=== PATIENT | male | born 1970 | race Caucasian/White ===

== ENCOUNTER 2023-01-11 16:27 | Inpatient (IN) | payer MEDICARE ==
[2023-01-11] MEDS ORDERED: METHYLPREDNISOLONE 125 MG INJ ONE (16:45)
[2023-01-11] MEDS ORDERED: IBUPROFEN 200 MG TAB PO ONE (16:46)
[2023-01-11] MEDS ORDERED: HYDROCODONE/APAP 7.5/325 MG TAB ONE (16:46)
[2023-01-11 17:08] LABS: Absolute Lymphocytes (CBC) 1.9 K/uL (0.7-4.9); Lymphocytes % 10.1 % (15.3-44.8); MCV 91.4 fL (80-100); MPV 8.8 fL (7.6-11.3); RBC Red Blood Cell Count 4.71 M/uL (4.33-5.43)
[2023-01-11 17:18] LABS: Potassium 4.1 mEq/L (3.5-5.1)
[2023-01-11 17:21] LABS: SARS-CoV-2 Antigen Rapid Res Negative (Negative)
--- NOTE | 2023-01-11 17:39 | RAD REPORT ---
EXAM DESCRIPTION: Marzena Single View01/11/2023 5:30 pm CLINICAL HISTORY: cough COMPARISON: October 2022 FINDINGS: The lungs appear clear of acute infiltrate. The heart is normal size IMPRESSION: No acute abnormalities displayed
[2023-01-11 17:59] LABS: Albumin 3.6 g/dL (3.4-5.0); Bilirubin Direct 0.2 mg/dL (0-0.2); Bilirubin Indirect, Calculated 0.4 mg/dL (0.2-0.8); Bilirubin Total 0.6 mg/dL (0.2-1.0); Protein, Total 7.7 g/dL (6.4-8.2)
[2023-01-11] MEDS ORDERED: NA CHLORIDE 0.9% 3,000 ML ONE (17:59)
[2023-01-11] MEDS ORDERED: CEFTRIAXONE 1000 MG/VIAL ONE (17:59)
[2023-01-11 18:46] LABS: Protime INR 1.05
--- NOTE | 2023-01-11 19:04 | ER ---
Nurse's Notes [facility] Name: Colby Beltrán Age: 52 yrs Sex: Male : 1970 Arrival Date: 01/11/2023 Time: 16:27 Bed 15 Private MD: Diagnosis: Elevated white blood cell count;Hypoxia;Fever, unspecified;Other pneumonia, unspecified organism;Severe sepsis without septic shock Presentation: 01/11 16:28 Chief complaint: EMS states: 1 WK COUGH AND SOB. Coronavirus screen: cough unrelated to bp allergies, fever, Client presents with at least one sign or symptom that may indicate coronavirus-19. Ebola Screen: No symptoms or risks identified at this time. Initial Sepsis Screen: Does the patient meet any 2 criteria? HR > 90 bpm. No. Patient's initial sepsis screen is negative. Does the patient have a suspected source of infection? Yes: Productive cough/pneumonia. Risk Assessment: Do you want to hurt yourself or someone else? Patient reports no desire to harm self or others. Onset of symptoms is unknown. Care prior to arrival: Glucose check: 115. 16:28 Method Of Arrival: EMS: [facility] bp 16:28 Acuity: DAMEON 3 bp Triage Assessment: 16:30 General: Appears ill, Behavior is appropriate for age. Pain: Denies pain. EENT: No bp deficits noted. Neuro: No deficits noted. Cardiovascular: Rhythm is sinus tachycardia. Respiratory: Reports shortness of breath cough that is. GI: No signs and/or symptoms were reported involving the gastrointestinal system. : No signs and/or symptoms were reported regarding the genitourinary system. Derm: No deficits noted. Musculoskeletal: No deficits noted. Historical: - Allergies: 16:30 No Known Allergies; bp - PMHx: 16:30 COPD; diabetes mellitus; bp - PSHx: 16:30 B knee scopes; back SX x 5; R shoulder SX; bp - Immunization history:: Adult Immunizations up to date. - Social history:: Smoking status: unknown. Screenin:31 [facility] ED Fall Risk Assessment (Adult) History of falling in the last 3 months, bp including since admission No falls in past 3 months (0 pts). Abuse screen: Denies threats or abuse. Denies injuries from another. Nutritional screening: No deficits noted. Tuberculosis screening: No symptoms or risk factors identified. Assessment: 16:31 General: SEE TRIAGE NOTE. bp 18:05 Reassessment: Patient appears in no apparent distress at this time. Patient is alert, bp oriented x 3, equal unlabored respirations, skin warm/dry/pink. Patient states symptoms have improved. 19:00 General: Appears in no apparent distress. comfortable, well groomed, well developed, pf1 Behavior is calm, cooperative, appropriate for age, quiet. 19:00 Pain: Denies pain. Neuro: Level of Consciousness is awake, alert, obeys commands, pf1 Oriented to person, place, time, situation, Reports dizziness, intermittent dizziness. Cardiovascular: Capillary refill < 3 seconds Patient's skin is warm and dry. Respiratory: Reports cough that is Airway is patent Respiratory effort is even, unlabored, Respiratory pattern is regular, symmetrical, Breath sounds with wheezes bilaterally. mild. GI: No deficits noted. Abdomen is round non-distended, Bowel sounds present X 4 quads. : No deficits noted. No signs and/or symptoms were reported regarding the genitourinary system. EENT: No deficits noted. No signs and/or symptoms were reported regarding the EENT system. Derm: No deficits noted. No signs and/or symptoms reported regarding the dermatologic system. 20:00 Reassessment: Patient appears in no apparent distress at this time. Patient and/or pf1 family updated on plan of care and expected duration. Pain level reassessed. Patient is alert, oriented x 3, equal unlabored respirations, skin warm/dry/pink. Patient states feeling better. Patient states symptoms have improved. Vital Signs: 16:28 BP 110 / 68; Pulse 108; Resp 19; Pulse Ox 97% ; bp 16:31 BP 109 / 72; Pulse 95; Resp 20; Temp 102; Pulse Ox 97% ; Weight 107.95 kg; bp 18:04 BP 106 / 70; Pulse 101; Resp 20; Pulse Ox 93% on 2 lpm NC; bp 18:30 BP 101 / 72; Pulse 100; Resp 20; Temp 98.9; Pulse Ox 93% on 2 lpm NC; bp 19:05 Temp 98.9(O); mm9 19:30 BP 116 / 75; Pulse 90; Resp 19; Temp 98.3; Pulse Ox 95% on 2 lpm NC; Pain 0/10; pf1 19:30 Pain Scale: Adult pf1 ED Course: 16:28 Patient arrived in ED. bp 16:29 Gisselle Ware FNP-C is PHCP. kb 16:29 Luisito Morales MD is Attending Physician. kb 16:30 Triage completed. bp 16:30 Arm band placed on. bp 16:31 Patient has correct armband on for positive identification. Bed in low position. Call bp light in reach. Side rails up X2. 16:32 Herbert Rausch, RN is Primary Nurse. bp 16:44 Inserted saline lock: 20 gauge in right antecubital area, using aseptic technique. bp Blood collected. 16:45 Initial lab(s) drawn, by ri, sent to lab. First set of blood cultures drawn Second set mm9 of blood cultures drawn by ri, COVID swab sent to lab. Flu and/or RSV swab sent to lab. 16:52 Adult w/ patient. Pillow given. Client placed on continuous cardiac and pulse oximetry mm9 monitoring. NIBP monitoring applied. equipment monitor phototypesetting on. Pulse ox on. NIBP on. 16:52 Inserted saline lock: 20 gauge in right antecubital area, using aseptic technique. mm9 16:53 Blood Culture Adult (2) Sent. mm9 16:53 Lactate w/ 2H reflex if indic. Sent. mm9 16:53 Basic Metabolic Panel Sent. mm9 16:53 CBC with Diff Sent. mm9 16:53 Flu Sent. mm9 16:53 SARS-COV-2 Antigen Rapid Sent. mm9 17:32 Chest Single View XRAY In Process Unspecified. EDMS 18:31 Protime (+inr) Sent. mm9 18:31 Ptt, Activated Sent. mm9 18:31 Blood Culture Adult (2) Sent. mm9 18:32 EKG done, by ED staff, reviewed by Luisito Morales MD. mm9 19:00 No provider procedures requiring assistance completed. Inserted per dayshift 18 gauge pf1 to LFA. 19:01 CT Chest For PE Angio In Process Unspecified. EDMS 19:04 Jim Morales MD is Hospitalizing Provider. kb 19:24 Primary Nurse role handed off by Herbert Rausch, RN rv1 20:13 Patient admitted, IV remains in place. pf1 Administered Medications: 16:38 CANCELLED (Duplicate Order): Acetaminophen PO 1000 mg PO once kb 16:44 Drug: MethylPrednisoLONE IVP 125 mg Route: IVP; Site: right antecubital; bp 17:25 Follow up: Response: No adverse reaction bp 16:44 Drug: Hydrocodone-Acetaminophen PO (7.5 mg-325 mg) 1 tabs Route: PO; bp 17:25 Follow up: Response: No adverse reaction bp 16:44 Drug: Ibuprofen PO 600 mg Route: PO; bp 17:25 Follow up: Response: No adverse reaction bp 18:05 Drug: Rocephin IV 1 grams Route: IV; Rate: calculated rate; Site: left forearm; bp 19:00 Follow up: Response: No adverse reaction; Marked relief of symptoms; IV Status: pf1 Completed infusion 18:05 Drug: NS 0.9% IV (30 ml/kg) 30 ml/kg Route: IV; Rate: bolus; Site: left forearm; bp 19:00 Follow up: Response: No adverse reaction; Marked relief of symptoms pf1 20:15 Follow up: IV Status: Completed infusion pf1 19:50 Drug: Zithromax IVPB 500 mg Route: IVPB; Infused Over: 1 hrs; Site: left forearm; pf1 20:15 Follow up: Response: No adverse reaction; Marked relief of symptoms pf1 20:25 Follow up: IV Status: Infusion continued upon admission pf1 Medication: 16:31 VIS not applicable for this client. bp Outcome: 19:04 Decision to Hospitalize by Provider. kb 20:25 Admitted to Med/surg accompanied by tech, via wheelchair, room 211, with oxygen, with pf1 chart, Report called to ENRIQUE Tucker 20:25 Condition: stable 20:25 Instructed on the need for admit, Demonstrated understanding of instructions. 20:27 Patient left the ED. pf1 Signatures: Dispatcher [employer] EDMD Gisselle Ware, Herbert Segal RN RN Maria Antonia Watkins mm9 Kala Vivar RN RN pf1 Martha Santos rv1 Corrections: (The following items were deleted from the chart) 17:49 16:31 BP 109 / 72; Pulse 95bpm; Resp 20bpm; Pulse Ox 97%; Temp 102F; bp bp 20:11 20:09 General: Appears pf1 pf1 20:12 19:00 Neuro: No deficits noted. Level of Consciousness is awake, alert, obeys commands, pf1 Oriented to person, place, time, situation, pf1
--- NOTE | 2023-01-11 19:05 | EDPHYS ---
Physician Documentation [facility] Name: Colby Beltrán Age: 52 yrs Sex: Male : 1970 Arrival Date: 01/11/2023 Time: 16:27 Bed 15 Private MD: ED Physician Luisito Morales HPI: 01/11 16:36 This 52 yrs old Male presents to ER via EMS with complaints of Cough. kb 16:36 Patient is a 52-year-old male with a history of COPD and diabetes who presents for kb cough, congestion, fever, chills that started yesterday. States initial cough started 1 week ago with some shortness of breath after inhaling sewer pipe cleaner accidentally. Was seen by PCP and given steroids which she completed on Thursday.. Historical: - Allergies: 16:30 No Known Allergies; bp - PMHx: 16:30 COPD; diabetes mellitus; bp - PSHx: 16:30 B knee scopes; back SX x 5; R shoulder SX; bp - Immunization history:: Adult Immunizations up to date. - Social history:: Smoking status: unknown. ROS: 16:38 Abdomen/GI: Negative for abdominal pain, nausea, vomiting, diarrhea, and constipation. kb 16:38 Constitutional: Positive for chills, fever. 16:38 ENT: Positive for sinus congestion. 16:38 Respiratory: Positive for cough. 16:38 Back: Positive for pain at rest, pain with movement. 16:38 All other systems are negative. Exam: 16:39 Constitutional: This is a well developed, well nourished patient who is awake, alert, kb and in no acute distress. Head/Face: Normocephalic, atraumatic. ENT: Moist Mucous membranes Cardiovascular: Regular rate and rhythm with a normal S1 and S2. No gallops, murmurs, or rubs. No pulse deficits. Abdomen/GI: Soft, non-tender. No distention Skin: Warm, dry with normal turgor. Normal color. MS/ Extremity: Pulses equal, no cyanosis. Neurovascular intact. Full, normal range of motion. Neuro: Awake and alert, GCS 15, oriented to person, place, time, and situation. Moves all extremities. Normal gait. 16:39 Respiratory: the patient does not display signs of respiratory distress, Respirations: normal, Breath sounds: wheezing: expiratory that is mild, is scattered. Vital Signs: 16:28 BP 110 / 68; Pulse 108; Resp 19; Pulse Ox 97% ; bp 16:31 BP 109 / 72; Pulse 95; Resp 20; Temp 102; Pulse Ox 97% ; Weight 107.95 kg; bp 18:04 BP 106 / 70; Pulse 101; Resp 20; Pulse Ox 93% on 2 lpm NC; bp 18:30 BP 101 / 72; Pulse 100; Resp 20; Temp 98.9; Pulse Ox 93% on 2 lpm NC; bp 19:05 Temp 98.9(O); mm9 19:30 BP 116 / 75; Pulse 90; Resp 19; Temp 98.3; Pulse Ox 95% on 2 lpm NC; Pain 0/10; pf1 19:30 Pain Scale: Adult pf1 MDM: 16:29 Patient medically screened. kb 16:39 Differential Diagnosis: Bronchitis Influenza Upper Respiratory Infection Viral Syndrome kb Pneumonia. Data reviewed: vital signs, nurses notes. Historians other than the Patient: EMS: [facility]. 18:57 Consideration of Admission/Observation Patient was admitted/placed on observation. kb Management of patient was discussed with the following: Hospitalist: XIOMY Desai accepts pt for admission under Dr Morales. Counseling: I had a detailed discussion with the patient and/or guardian regarding: the historical points, exam findings, and any diagnostic results supporting the discharge/admit diagnosis, lab results, radiology results, the need for further work-up and treatment in the hospital. 01/11 16:30 Order name: SARS-COV-2 Antigen Rapid; Complete Time: 17:21 kb 01/11 16:30 Order name: Flu; Complete Time: 17:40 kb 01/11 16:30 Order name: CBC with Diff; Complete Time: 17:18 kb 01/11 16:30 Order name: Basic Metabolic Panel; Complete Time: 17:18 kb 01/11 16:33 Order name: Lactate w/ 2H reflex if indic.; Complete Time: 17:35 kb 01/11 16:33 Order name: Blood Culture Adult (2) 01/11 17:30 Order name: Protime (+inr); Complete Time: 18:56 kb 01/11 17:30 Order name: Ptt, Activated; Complete Time: 18:56 kb 01/11 17:30 Order name: LFT's; Complete Time: 18:02 kb 01/11 16:30 Order name: Chest Single View XRAY; Complete Time: 17:40 kb 01/11 18:03 Order name: CT Chest For PE Angio; Complete Time: 19:26 kb 01/11 17:30 Order name: EKG; Complete Time: 17:31 kb 01/11 16:30 Order name: IV Start; Complete Time: 16:41 kb 01/11 17:30 Order name: Cardiac monitoring; Complete Time: 18:31 kb 01/11 17:30 Order name: EKG - Nurse/Tech; Complete Time: 18:31 kb Administered Medications: 16:38 CANCELLED (Duplicate Order): Acetaminophen PO 1000 mg PO once kb 16:44 Drug: MethylPrednisoLONE IVP 125 mg Route: IVP; Site: right antecubital; bp 17:25 Follow up: Response: No adverse reaction bp 16:44 Drug: Hydrocodone-Acetaminophen PO (7.5 mg-325 mg) 1 tabs Route: PO; bp 17:25 Follow up: Response: No adverse reaction bp 16:44 Drug: Ibuprofen PO 600 mg Route: PO; bp 17:25 Follow up: Response: No adverse reaction bp 18:05 Drug: Rocephin IV 1 grams Route: IV; Rate: calculated rate; Site: left forearm; bp 19:00 Follow up: Response: No adverse reaction; Marked relief of symptoms; IV Status: pf1 Completed infusion 18:05 Drug: NS 0.9% IV (30 ml/kg) 30 ml/kg Route: IV; Rate: bolus; Site: left forearm; bp 19:00 Follow up: Response: No adverse reaction; Marked relief of symptoms pf1 20:15 Follow up: IV Status: Completed infusion pf1 19:50 Drug: Zithromax IVPB 500 mg Route: IVPB; Infused Over: 1 hrs; Site: left forearm; pf1 20:15 Follow up: Response: No adverse reaction; Marked relief of symptoms pf1 20:25 Follow up: IV Status: Infusion continued upon admission pf1 Disposition Summary: 01/11/23 19:04 Hospitalization Ordered Hospitalization Status: Observation kb Provider: Jim Morales Location: Telemetry/MedSurg (observation) kb Problem: new kb Symptoms: are unchanged kb Bed/Room Type: Standard kb Condition: Fair(01/11/23 19:04) kb Room Assignment: 211(01/11/23 19:46) cg Diagnosis - Elevated white blood cell count kb - Hypoxia kb - Fever, unspecified kb - Other pneumonia, unspecified organism kb - Severe sepsis without septic shock kb Forms: - Medication Reconciliation Form kb - SBAR form kb Addendum: 01/13/2023 09:00 Co-signature as Attending Physician, Luisito Morales MD I reviewed the patient's care r n provided by the Advanced Practice Provider and agree with the diagnosis and treatment plan. Signatures: Dispatcher [employer] EDOR Gisselle Ware, JET OPERATOR-C JET OPERATOR-Ckb Luisito Morales MD MD rn Garcia, Cindy, RN RN Herbert Rodríguez RN RN Kala Allison, ENRIQUE RN pf1 Corrections: (The following items were deleted from the chart) 01/11 16:38 16:33 Acetaminophen PO 1000 mg PO once ordered. kb kb 19:04 19:04 Stable kb kb 19:46 19:04 kb cg
--- NOTE | 2023-01-11 19:21 | RAD REPORT ---
EXAM DESCRIPTION: CT - Chest For Pe Angio - 01/11/2023 6:59 pm CLINICAL HISTORY: Chest pain COMPARISON: None. TECHNIQUE: Dynamically enhanced axial 3 mm thick images of the chest were obtained during administra tion of 100 mL Isovue 370 IV contrast. Coronal and oblique reconstruction images were generated and r eviewed. Exam utilizes a protocol for optimal evaluation of pulmonary arterial tree. Maximum intensity projections 3D imaging was utilized All CT scans are performed using dose optimization technique as appropriate and may include automated exposure control or mA/KV adjustment according to patient size. FINDINGS: A pulmonary embolus is not seen. A thoracic aortic aneurysm is not noted. A pleural effusion is not seen. A pericardial effusion is not seen. A right lower lobe consolidation IMPRESSION: Negative for a pulmonary embolism. Right lower lobe consolidation probably pneumonia. This should be followed until it has cleared to he lp exclude a post obstructive process/underlying mass
[2023-01-11] MEDS ORDERED: AZITHROMYCIN 500 MG INJ IVPB ONE (19:44)
[2023-01-11] MEDS ORDERED: NA CHLORIDE 0.9% 250 ML ONE (19:47)
[2023-01-11 20:48] VITALS: BMI 32.3
[2023-01-11] MEDS ORDERED: ALBUTEROL 2.5 MG/3 ML NEB SOL NEB PRN (20:50)
[2023-01-11] MEDS ORDERED: ONDANSETRON 4 MG/2 ML VIAL IV PRN (20:50)
[2023-01-11] MEDS ORDERED: ACETAMINOPHEN 500 MG TAB PO PRN (20:50)
[2023-01-11] MEDS ORDERED: INSULIN -REGULAR HUMAN 50 UNIT/0.5 ML ML SQ SCH (21:00)
[2023-01-11] MEDS: BENZONATATE 100 MG CAP PO PRN (21:06)
[2023-01-11] MEDS: NA CHLORIDE 0.9% 1,000 ML IV SCH (21:07)
--- NOTE | 2023-01-12 01:00 | P.HP ---
Certification for Inpatient Patient admitted to: Inpatient With expected LOS: >2 Midnights Patient will require the following post-hospital care: None Practitioner: I am a practitioner with admitting privileges, knowledge of patient current condition, hospital course, and medical plan of care. Services: Services provided to patient in accordance with Admission requirements found in Title 42 Section 412.3 of the Code of Federal Regulations Patient History Date of Service: 01/11/23 Reason for admission: Severe sepsis, pneumonia History of Present Illness: 52-year-old male with history of COPD, diabetes mellitus type 2, hyperlipidemia presents the emergency department with chief complaint of fever, cough. He reports that a week ago Thursday he was cleaning his car using [employer] cleaning and when he sprayed it got caught in the wind and he inhaled some of it, he reports ever since then he been feeling short of breath and recently started having fevers. He was evaluated in the emergency department his labs are significant for leukocytosis white blood cell count 18.4 creatinine 1.33 GFR 64 lactic acid 3.2 chest x-ray negative for acute finding CTA of the chest demonstrated right lower lobe consolidation probably pneumonia. This should be followed until it has cleared up to help exclude a postobstructive process/underlying mass. He started Rocephin/Zithromax to treat here for severe sepsis at this time. Will be admitted for further evaluation and management. Allergies No Known Allergies Allergy (Unverified 01/11/23 20:49) Home Medications: Acetaminophen [Tylenol Extra Strength] 1,000 mg PO BID 01/11/23 Ibuprofen [Motrin*] 800 mg PO BID 01/11/23 Metformin ER [Glucophage ER*] 500 mg PO BID 01/11/23 glipiZIDE [Glipizide] 10 mg PO DAILY 01/11/23 - Past Medical/Surgical History Has patient received pneumonia vaccine in the past: Yes Diabetic: Yes -: DM -: COPD -: Back surg (5x) -: Osito knee scopes -: R Shoulder Psychosocial/ Personal History: Patient lives at home with family is retired - Social History Smoking Status: Current every day smoker Alcohol use: No CD- Drugs: No Caffeine use: Yes Place of Residence: Home Review of Systems 10-point ROS is otherwise unremarkable General: Fever, Chills Respiratory: Cough, Shortness of Breath, Wheezing Physical Examination - Vital Signs Temperature: 98.3 F Blood Pressure: 116/75 Pulse: 90 Respirations: 19 - Physical Exam General: Alert, In no apparent distress, Oriented x3 HEENT: Atraumatic, PERRLA, Mucous membr. moist/pink, EOMI, Sclerae nonicteric Neck: Supple, 2+ carotid pulse no bruit, No LAD, Without JVD or thyroid abnormality Respiratory: Clear to auscultation bilaterally, Normal air movement Cardiovascular: Regular rate/rhythm, Normal S1 S2 Capillary refill: <2 Seconds Gastrointestinal: Normal bowel sounds, No tenderness Musculoskeletal: No tenderness Integumentary: No rashes Neurological: Normal gait, Normal speech, Normal strength at 5/5 x4 extr, Normal tone, Normal affect - Studies Laboratory Data (last 24 hrs) 01/11/23 18:28: PT 11.5, INR 1.05, APTT 34.4 01/11/23 16:30: Total Bilirubin 0.6, AST 14 L, ALT 29, Alkaline Phosphatase 88 01/11/23 16:30: Sodium 136, Potassium 4.1, BUN 18, Creatinine 1.33 H, Glucose 103 01/11/23 16:30: WBC 18.40 H, Hgb 14.2, Hct 43.0, Plt Count 289 Microbiology Data (last 24 hrs): 01/11/23 16:30 Nasopharnyx Influenza Type A Antigen Screen - Final 01/11/23 16:30 Nasopharnyx Influenza Type B Antigen Screen - Final Assessment and Plan - Plan Assessment: Severe sepsis secondary to right lower lobe pneumonia Acute hypoxic respiratory failure secondary to right lower lobe pneumonia COPD Diabetes mellitus type 2 Plan: Severe sepsis secondary to right lower lobe pneumonia Blood cultures obtained in the emergency department, continue IV IV Rocephin/Zithromax. Daily room air saturations currently he is requiring oxygen per nasal cannula to maintain saturations greater than 90%. Acute hypoxic respiratory failure secondary to right lower lobe pneumonia Continue as above, wean off of nasal cannula oxygen. COPD as needed nebulizer treatments. Diabetes mellitus type 2 ACHS Accu-Chek, sliding scale insulin. DVT PPX: Lovenox Code status: full Discharge Plan: Home Plan to discharge in: 48 Hours - Advance Directives Does patient have a Living Will: No Does patient have a Durable POA for Healthcare: No - Code Status/Comfort Care Code Status Assessed: Yes (Full code) Critical Care: No Time Spent Managing Pts Care (In Minutes): 55
[2023-01-12 03:38] LABS: Absolute Lymphocytes (CBC) 0.8 K/uL (0.7-4.9); Hematocrit 40.4 % (39.6-49.0); Lymphocytes % 4.7 % (15.3-44.8); MCV 92.6 fL (80-100); MPV 9.5 fL (7.6-11.3); RBC Red Blood Cell Count 4.37 M/uL (4.33-5.43)
[2023-01-12 03:54] LABS: Potassium 4.9 mEq/L (3.5-5.1)
[2023-01-12] MEDS ORDERED: GLUCAGON 1 MG/VIAL IM PRN (04:01)
[2023-01-12] MEDS ORDERED: D50W 25 GM/50 ML SYRINGE IV PRN (04:01)
[2023-01-12] MEDS ORDERED: INSULIN -REGULAR HUMAN 50 UNIT/0.5 ML ML IV ONE (04:02)
[2023-01-12] MEDS ORDERED: D10W 125 ML IV PRN (04:06)
[2023-01-12 04:49] LABS: Blood Morphology Comment NOT SEEN (NOT SEEN); Platelet Estimate ADEQ
[2023-01-12] MEDS: NA CHLORIDE 0.9% 1,000 ML IV SCH ×2 (06:49→16:28)
[2023-01-12] MEDS: BENZONATATE 100 MG CAP PO PRN (06:49)
--- NOTE | 2023-01-12 06:59 | P.PN ---
Date of Service: 01/12/23 Subjective: feeling a little better today continues to have trouble breathing, slightly improved; +SOB with exertion febrile yesterday (102) afebrile since last night otherwise no new / worsening problems ROS: 10 point ROS as noted above, otherwise negative Physical Exam: GEN: Alert, oriented, NAD HEENT: Normal conjunctiva, sclera anicteric CV: Regular rate and rhythm, no edema Pulm: mildly-labored respirations on 2.5L NC, diminished at bases b/, expiratory wheezes ABD: Soft, nontender, nondistended Neuro: Normal speech, normal affect vitals reviewed Problem List: Severe sepsis secondary to right lower lobe pneumonia Acute hypoxic respiratory failure secondary to right lower lobe pneumonia acute on chronic COPD exacerbation NIDDM2 Severe sepsis secondary to right lower lobe pneumonia Acute hypoxic respiratory failure secondary to right lower lobe pneumonia acute on chronic COPD exacerbation CXR (01/11): No acute abnormalities displayed CTA chest (01/11): Negative for a pulmonary embolism. Right lower lobe consolidation probably pneumonia Blood cultures: pending IV Rocephin/Zithromax (01/11-) Daily room air sats, wean oxygen as tolerated neb treatments, tessalon perles PRN pain meds as needed IVF NIDDM2 ACHS Accu-Chek, sliding scale insulin. VTE: Lovenox Code: Full Dispo: Home ~1-2 days
[2023-01-12] MEDS: ENOXAPARIN 40 MG/0.4 ML SQ SCH (08:28)
[2023-01-12] MEDS: INSULIN -REGULAR HUMAN 50 UNIT/0.5 ML ML SQ SCH ×4 (08:30→20:05)
--- NOTE | 2023-01-12 12:03 | EKG ---
Test Date: 2023-01-11 Test Time: 18:42:15 Supervisor Of Research: FOREST MEASUREMENT RESULTS: Intervals: Rate: 94 CO: 136 QRSD: 90 QT: 370 QTc: 462 [place]: P: 36 CO: 136 QRS: 43 T: 67 INTERPRETIVE STATEMENTS: Normal sinus rhythm Normal ECG Compared to ECG 10/31/2022 17:58:52 No significant changes Electronically Signed On 01-12-23 12:00:29 CDT by Eduar Marcano
[2023-01-12] MEDS ORDERED: CEFTRIAXONE 1,000 MG in NA CHLORIDE 0.9% 50 ML IVPB SCH (18:00)
[2023-01-12] MEDS ORDERED: POTASSIUM 25 MEQ EFFERV TAB PO ONE (19:30)
[2023-01-12] MEDS ORDERED: AZITHROMYCIN IV 500 MG in NA CHLORIDE 0.9% 250 ML IVPB SCH (20:00)
[2023-01-13] MEDS: NA CHLORIDE 0.9% 1,000 ML IV SCH ×4 (02:50→15:12)
[2023-01-13 03:39] LABS: Absolute Lymphocytes (CBC) 3.4 K/uL (0.7-4.9); Hematocrit 36.9 % (39.6-49.0); Lymphocytes % 16.7 % (15.3-44.8); MCV 92.2 fL (80-100); MPV 8.9 fL (7.6-11.3)
[2023-01-13 04:14] LABS: Potassium 4.3 mEq/L (3.5-5.1)
[2023-01-13 04:50] LABS: Blood Morphology Comment NOT SEEN (NOT SEEN); Platelet Estimate ADEQ
[2023-01-13] MEDS: ENOXAPARIN 40 MG/0.4 ML SQ SCH (09:00)
[2023-01-13] MEDS: INSULIN -REGULAR HUMAN 50 UNIT/0.5 ML ML SQ SCH ×4 (09:38→20:27)
[2023-01-13] MEDS ORDERED: levoFLOXacin 750 MG TAB PO SCH (11:00)
[2023-01-13] MEDS: ALBUTEROL 2.5 MG/3 ML NEB SOL NEB PRN (14:45)
--- NOTE | 2023-01-13 15:10 | P.PN ---
Subjective Date of Service: 01/13/23 Chief Complaint: Severe sepsis, pneumonia Patient states he feels much better and desires to go home. He has been afebrile since admission. White cell count trended up from yesterday. Physical Examination - Vital Signs Temperature: 98.1 F Blood Pressure: 133/82 Pulse: 77 Respirations: 16 Pulse Ox (%): 96 Assessment And Plan - Plan Physical Exam: GEN: Alert, oriented, NAD HEENT: Normal conjunctiva, sclera anicteric CV: Regular rate and rhythm, no edema Pulm: Nonlabored breathing, right basilar crackles. ABD: Soft, nontender, nondistended Neuro: Normal speech, normal affect vitals reviewed Diagnosis: Severe sepsis secondary to right lower lobe pneumonia Acute hypoxic respiratory failure secondary to right lower lobe pneumonia acute on chronic COPD exacerbation NIDDM2 Severe sepsis secondary to right lower lobe pneumonia Acute hypoxic respiratory failure secondary to right lower lobe pneumonia acute on chronic COPD exacerbation CXR (01/11): No acute abnormalities displayed CTA chest (01/11): Negative for a pulmonary embolism. Right lower lobe consolidation probably pneumonia Blood cultures: No growth. Change antibiotics to I. Hypoxia resolved. Patient is currently tolerating room air with good oxygen saturation. Current neb treatments, tessalon perles PRN pain meds as needed Reduce IV fluid rate. NIDDM2 ACHS Accu-Chek, sliding scale insulin. VTE: Lovenox Code: Full Dispo: Possible home tomorrow.
[2023-01-13] MEDS: BENZONATATE 100 MG CAP PO PRN (17:18)
[2023-01-14 04:08] LABS: Absolute Lymphocytes (CBC) 2.9 K/uL (0.7-4.9); Hematocrit 36.9 % (39.6-49.0); MCV 91.7 fL (80-100); MPV 9.2 fL (7.6-11.3); RBC Red Blood Cell Count 4.03 M/uL (4.33-5.43)
[2023-01-14 04:17] LABS: Potassium 4.1 mEq/L (3.5-5.1)
[2023-01-14] MEDS: NA CHLORIDE 0.9% 1,000 ML IV SCH (04:35)
[2023-01-14] MEDS: INSULIN -REGULAR HUMAN 50 UNIT/0.5 ML ML SQ SCH (07:30)
[2023-01-14] MEDS: ALBUTEROL 2.5 MG/3 ML NEB SOL NEB PRN (07:46)
[2023-01-14 07:47] VITALS: O2SAT 94
[2023-01-14] MEDS: ENOXAPARIN 40 MG/0.4 ML SQ SCH (08:45)
[2023-01-14] MEDS ORDERED: Levofloxacin 750mg IV 750 MG/150 ML BAG IV SCH (09:00)
[2023-01-14 09:20] VITALS: BP 112/72; TEMP 98
--- NOTE | 2023-01-14 10:12 | P.DS ---
Admission Date: 01/11/23 Discharge Date: 01/14/23 Disposition: ROUTINE DISCHARGE Reason for Admission: Severe sepsis, pneumonia Brief History of Present Illness: 52-year-old male with history of COPD, diabetes mellitus type 2, hyperlipidemia presents the emergency department with chief complaint of fever, cough. He reports that a week ago Thursday he was cleaning his car using [employer] and when he sprayed it got caught in the wind and he inhaled some of it, and since then was feeling short of breath and started having fevers. He was evaluated in the emergency department and his labs were significant for leukocytosis white blood cell count 18.4 creatinine 1.33 GFR 64 lactic acid 3.2. CTA of the chest demonstrated right lower lobe consolidation probably pneumonia. He was started Rocephin/Zithromax to treat severe sepsis and given IV Solu- Medrol. Patient was admitted for further management. Hospital Course: Diagnosis: Severe sepsis secondary to right lower lobe pneumonia Acute hypoxic respiratory failure secondary to right lower lobe pneumonia acute on chronic COPD exacerbation NIDDM2 Severe sepsis secondary to right lower lobe pneumonia Acute hypoxic respiratory failure secondary to right lower lobe pneumonia acute on chronic COPD exacerbation CXR (01/11): No acute abnormalities displayed CTA chest (01/11): Negative for a pulmonary embolism. Right lower lobe consolidation probably pneumonia Blood cultures: No growth. Patient treated with IV Rocephin and Zithromax and transition to oral Levaquin. Hypoxia resolved. He was treated with nebulizer treatment. He had severe leukocytosis which significantly improved. Patient is currently asymptomatic with stable vitals. Patient has been informed he will need another x-ray/CT chest within 6-8 weeks to document clearance of the infiltrates. NIDDM2 Managed with ACHS Accu-Chek, sliding scale insulin. Glipizide and metformin resumed on discharge. Vital Signs/Physical Exam: Temp Pulse Resp BP Pulse Ox 98.0 F 87 16 112/72 94 01/14/23 08:00 01/14/23 08:00 01/14/23 08:00 01/14/23 08:00 01/14/23 08:00 General: Alert, In no apparent distress, Oriented x3 HEENT: Mucous membr. moist/pink Neck: Supple, JVD not distended Respiratory: Clear to auscultation bilaterally, Normal air movement Cardiovascular: Regular rate/rhythm, Normal S1 S2 Gastrointestinal: Normal bowel sounds, Soft and benign, Non-distended Musculoskeletal: No swelling Integumentary: No rashes, No cyanosis Neurological: Normal strength at 5/5 x4 extr Laboratory Data at Discharge: WBC 14.00 thou/uL (4.3-10.9) H 01/14/23 02:33 Hgb 12.0 g/dL (13.6-17.9) L 01/14/23 02:33 Hct 36.9 % (39.6-49.0) L 01/14/23 02:33 Plt Count 263 thou/uL (152-406) 01/14/23 02:33 PT 11.5 SECONDS (9.5-12.5) 01/11/23 18:28 INR 1.05 01/11/23 18:28 APTT 34.4 SECONDS (24.3-36.9) 01/11/23 18:28 Sodium 138 mEq/L (136-145) 01/14/23 02:33 Potassium 4.1 mEq/L (3.5-5.1) 01/14/23 02:33 BUN 19 mg/dL (7-18) H 01/14/23 02:33 Creatinine 1.08 mg/dL (0.70-1.30) 01/14/23 02:33 Glucose 155 mg/dL (74-106) H 01/14/23 02:33 Total Bilirubin 0.6 mg/dL (0.2-1.0) 01/11/23 16:30 AST 14 U/L (15-37) L 01/11/23 16:30 ALT 29 U/L (16-61) 01/11/23 16:30 Alkaline Phosphatase 88 U/L (45-117) 01/11/23 16:30 Home Medications: Acetaminophen [Tylenol Extra Strength] 1,000 mg PO BID 01/11/23 Ibuprofen [Motrin*] 800 mg PO BID 01/11/23 Metformin ER [Glucophage ER*] 500 mg PO BID 01/11/23 glipiZIDE [Glipizide] 10 mg PO DAILY 01/11/23 Lactobacillus Acidophilus [Acidophilus] 1 each PO TID #60 cap 01/14/23 levoFLOXacin [Levaquin] 750 mg PO DAILY #12 tab 06/14/23 New Medications: Lactobacillus Acidophilus [Acidophilus] 1 each PO TID #60 cap levoFLOXacin [Levaquin] 750 mg PO DAILY #12 tab Followup: France Deleon MD [Primary Care Provider] - (Call to schedule appointment.) Time spent managing pt's care (in minutes): 40
== END 2023-01-14 10:28 | disposition home or self-care (01) | DRG 871 ==
LOC: ER 16:27 → ERHOLD 19:41 → 2ND 19:51
PROVIDERS: ADMIT Hospitalist; ATTEND Internal Medicine
DX: A41.9 Sepsis, unspecified organism (principal); J96.01 Acute respiratory failure with hypoxia; J44.0 Chronic obstructive pulmonary disease with (acute) lower respiratory infection; J44.1 Chronic obstructive pulmonary disease with (acute) exacerbation; R65.20 Severe sepsis without septic shock; E11.9 Type 2 diabetes mellitus without complications; E78.5 Hyperlipidemia, unspecified; F17.200 Nicotine dependence, unspecified, uncomplicated; Z79.84 Long term (current) use of oral hypoglycemic drugs; Z79.899 Other long term (current) drug therapy; Z20.822 Contact with and (suspected) exposure to COVID-19
CPT/HCPCS: 36415; 71045; 71275; 80048; 80076; 82947; 83036; 83605; 85025; 85610; 85730; 87040; 87804; 87811; 93005; 94010; 94760; 96365; 96367; 96368; 96375; 99285; J0696; J1650; J1815; J2930; J7030; J7050; J7613; Q9967

== ENCOUNTER 2023-06-24 06:06 | Day surgery (SDC) | payer MEDICARE, OTHER ==
[2023-06-19 15:01] LABS: Hematocrit 44.6 % (39.6-49.0); MCV 91.1 fL (80-100); MPV 9.8 fL (7.6-11.3); Platelets 220 thou/uL (152-406); RBC Red Blood Cell Count 4.89 M/uL (4.33-5.43)
--- NOTE | 2023-06-19 15:08 | RAD REPORT ---
EXAM DESCRIPTION: RAD - Chest Pa And Lat (2 Views) - 06/19/2023 3:00 pm CLINICAL HISTORY: pre op colonoscopy Chest pain. COMPARISON: Chest Single View dated 01/11/2023; Chest Single View dated 10/31/2022 TECHNIQUE: PA and lateral views of the chest were obtained. FINDINGS: The lungs are hyperexpanded compatible with COPD. The heart is upper limit of normal in si ze. No fracture or aggressive bony process. IMPRESSION: COPD without acute process identified. The USPSTF recommends annual screening for lung cancer with low-dose CT (LDCT) in adults aged 50 to 8 0 years who have a 20 pack-year smoking history and currently smoke or have quit within the past 15 y ears.
[2023-06-19 15:17] LABS: Potassium 4.8 mEq/L (3.5-5.1)
[2023-06-24] MEDS ORDERED: NA CHLORIDE 0.9% 1,000 ML ONE (06:39)
[2023-06-24] MEDS ORDERED: propofoL 200 MG/20 ML VIAL IV ONE ×2 (07:45→08:06)
[2023-06-24] MEDS ORDERED: LIDOCAINE 1% MPF 30 ML VIAL ONE (07:46)
[2023-06-24 08:50] VITALS: BP 123/88; TEMP 97.1; O2SAT 99
== END 2023-06-24 08:54 | disposition home or self-care (01) ==
LOC: OR 06:06
PROVIDERS: ATTEND Surgery
PROC: 0DBN8ZX Excision of Sigmoid Colon, Via Natural or Artificial Opening Endoscopic, Diagnostic (ICD-10-PCS; principal; 2023-06-24 07:30)
DX: K62.5 Hemorrhage of anus and rectum (principal); K63.5 Polyp of colon; D12.5 Benign neoplasm of sigmoid colon; K64.4 Residual hemorrhoidal skin tags; K64.8 Other hemorrhoids; K57.30 Diverticulosis of large intestine without perforation or abscess without bleeding
CPT/HCPCS: 45384; 80048; 36415; 82947; 88305; 85027; 71046; J2704 ×2; J2001; J7030

== ENCOUNTER 2023-09-22 12:47 | Observation (INO) | payer OTHER ==
[2023-09-22 13:16] LABS: Absolute Lymphocytes (CBC) 2.8 K/uL (0.7-4.9); Hematocrit 43.7 % (39.6-49.0); Lymphocytes % 36.1 % (15.3-44.8); MCV 90.9 fL (80-100); MPV 8.9 fL (7.6-11.3); Platelets 205 thou/uL (152-406); RBC Red Blood Cell Count 4.81 M/uL (4.33-5.43)
[2023-09-22 13:26] LABS: Protime INR 0.99
--- NOTE | 2023-09-22 13:33 | RAD REPORT ---
EXAM DESCRIPTION: CT - Head Brain Wo Cont - 09/22/2023 1:23 pm CLINICAL HISTORY: Right numbness COMPARISON: none TECHNIQUE: Computed axial tomography of the head was obtained. IV contrast was not requested. All CT scans are performed using dose optimization technique as appropriate and may include automated exposure control or mA/KV adjustment according to patient size. FINDINGS: An intracranial bleed is not seen The ventricles are normal in caliber No significant hypodense areas within the brain visualized No extra-axial fluid collection is noted. Fluid within the sinuses/ mastoids is not seen IMPRESSION: No acute intracranial abnormality is seen If patient's symptoms persist MRI of the brain would be recommended
[2023-09-22 13:36] LABS: Albumin 3.8 g/dL (3.4-5.0); Bilirubin Direct 0.2 mg/dL (0-0.2); Bilirubin Indirect, Calculated 0.2 mg/dL (0.2-0.8); Bilirubin Total 0.4 mg/dL (0.2-1.0); Magnesium 1.8 mg/dL (1.6-2.4); Potassium 3.7 mEq/L (3.5-5.1); Protein, Total 7.5 g/dL (6.4-8.2); Troponin High Sensitivity 5.1 pg/mL (<58.9)
--- NOTE | 2023-09-22 13:52 | RAD REPORT ---
EXAM DESCRIPTION: CTHead angio09/22/2023 1:23 pm CLINICAL HISTORY: Right numbness COMPARISON: none TECHNIQUE: 100 cc Isovue [address] angiogram of the head was obtained. 3D MIPS reconstruction performed. All CT scans are performed using dose optimization technique as appropriate and may include automated exposure control or mA/KV adjustment according to patient size. FINDINGS: origin of the posterior cerebral arteries The distal internal carotid, basilar, anterior cerebral, middle cerebral and posterior cerebral arter ies do not demonstrate a significant stenosis An aneurysm is not seen No large vessel occlusion IMPRESSION: No significant abnormality is displayed
--- NOTE | 2023-09-22 13:56 | RAD REPORT ---
EXAM DESCRIPTION: [facility] Angio09/22/2023 1:24 pm CLINICAL HISTORY: Right numbness COMPARISON: None TECHNIQUE: 100 cc Isovue [address] angiogram of the neck was obtained. 3D MIPS reconstruction performed. All CT scans are performed using dose optimization technique as appropriate and may include automated exposure control or mA/KV adjustment according to patient size. FINDINGS: No plaque is visualized within common carotid, internal carotid and external carotid arter ies bilaterally Left vertebral artery is hypoplastic. The distal left vertebral artery is very small with diminished opacification The right vertebral artery unremarkable No dissection is seen. No high-grade stenosis IMPRESSION: Distal left vertebral artery is very small with diminished opacification. This probably is a normal finding as the artery is hypoplastic. A dissection can also have this appearance. MRI the brain may be helpful for further evaluation Nascet crieria Mild stenosis 0 to 49 % Moderate stenosis 50-69% Severe stenosis 70-99%
--- NOTE | 2023-09-22 14:13 | RAD REPORT ---
EXAM DESCRIPTION: [facility] Single View09/22/2023 1:51 pm CLINICAL HISTORY: cva COMPARISON: 2022 FINDINGS: The lungs appear clear of acute infiltrate. The heart is normal size IMPRESSION: No acute abnormalities displayed
--- NOTE | 2023-09-22 14:39 | ER ---
Nurse's Notes [facility] Name: Colby Beltrán Age: 52 yrs Sex: Male : 1970 Arrival Date: 09/22/2023 Time: 12:47 Bed [id number] Private MD: France Deleon Diagnosis: Right-sided numbness Presentation: 09/22 12:59 Chief complaint: Patient states: R side of face, tongue and forehead feel numb for the ll1 past 4-5 days. Copper taste to R side of mouth. Coronavirus screen: Client denies travel out of the [place] in the last 14 days. At this time, the client does not indicate any symptoms associated with coronavirus-19. Ebola Screen: Patient denies travel to an Ebola-affected area in the 21 days before illness onset. Initial Sepsis Screen: Does the patient meet any 2 criteria? No. Patient's initial sepsis screen is negative. Does the patient have a suspected source of infection? No. Patient's initial sepsis screen is negative. Risk Assessment: Do you want to hurt yourself or someone else? Patient reports no desire to harm self or others. Onset of symptoms was September 19, 2023. 12:59 Method Of Arrival: Ambulatory ll1 12:59 Acuity: DAMEON 3 ll1 Historical: - Allergies: 12:58 No Known Allergies; ll1 - PMHx: 12:58 COPD; diabetes mellitus; Asthma; GERD; Hypercholesterolemia; ll1 - PSHx: 12:58 B knee scopes; back SX x 5; R shoulder SX; ll1 - Immunization history:: Adult Immunizations up to date. - Social history:: Smoking status: Patient reports the use of cigarette tobacco products, smokes one-half pack cigarettes per day. - Family history:: not pertinent. Screenin:07 [facility] ED Fall Risk Assessment (Adult) History of falling in the last 3 months, me1 including since admission No falls in past 3 months (0 pts) Confusion or Disorientation No (0 pts) Intoxicated or Sedated No (0 pts) Impaired Gait No (0 pts) Mobility Assist Device Used No (0 pt) Altered Elimination No (0 pt) Score/Fall Risk Level 0 - 2 = Low Risk Maintained a safe environment, Provided non-skid footwear, Hourly rounding (assess needs \T\ fall precautionary measures) done. Abuse screen: Denies threats or abuse. Nutritional screening: No deficits noted. Tuberculosis screening: No symptoms or risk factors identified. 16:00 [place] Swallow Protocol Exclusion Criteria: Exclusion Criteria Result: Proceed Brief me1 Cognitive Screen What is your name? Normal, Where are you right now? Normal, What year is it? Normal. Oral Mechanism Examination Facial Symmetry: Normal, Motion: Normal, Lip Closure: Normal, Oral Mechanism Result: Normal. 3 oz Water Swallow Challenge: Pt able to drink all water without stopping, coughing, choking or throat clearing: No Result: PASS MD Notified: Linwood Mata MD. Assessment: 14:07 General: Appears comfortable, well groomed, well developed, well nourished, Behavior is me1 calm, cooperative, appropriate for age, Reports R side of face, tongue and forehead feel numb for the past 4-5 days. Copper taste to R side of mouth. Reports decreased sensation to RUE and RLE. No weakness in any extremity noted or reported. Pain: Denies pain. Neuro: Level of Consciousness is awake, alert, obeys commands, Oriented to person, place, time, situation, Appropriate for age [employer] Community Liaison are equal bilaterally Moves all extremities. Full function Gait is steady, Speech is normal, Facial symmetry appears normal, Pupils are PERRLA, Numbness in right arm and right leg Reports R side of face, tongue and forehead feel numb for the past 4-5 days. Copper taste to R side of mouth. Reports decreased sensation to RUE an RLE. . Cardiovascular: Capillary refill < 3 seconds Patient's skin is warm and dry. Respiratory: Airway is patent Trachea midline Respiratory effort is even, unlabored, Respiratory pattern is regular, symmetrical. GI: No signs and/or symptoms were reported involving the gastrointestinal system. : No signs and/or symptoms were reported regarding the genitourinary system. 17:41 Reassessment: Patient appears in no apparent distress at this time. No changes from ld1 previously documented assessment. Patient and/or family updated on plan of care and expected duration. Pain level reassessed. Patient is alert, oriented x 3, equal unlabored respirations, skin warm/dry/pink. Vital Signs: 12:59 BP 159 / 103; Pulse 85; Resp 17; Temp 98; Pulse Ox 96% on R/A; Weight 115.67 kg; Height ll1 6 ft. 0 in. ; Pain 0/10; 13:00 BP 136 / 92; Pulse 84; Resp 16; Pulse Ox 92% on R/A; me1 14:00 BP 150 / 97; Pulse 75; Resp 19; Pulse Ox 93% on R/A; me1 17:41 BP 143 / 99; Pulse 70; Resp 19; Pulse Ox 97% on R/A; ld1 12:59 Body Mass Index 34.58 (115.67 kg, 182.88 cm) ll1 12:59 Pain Scale: Adult ll1 NIH Stroke Scale Scores: 19:54 NIHSS Score: 1 ny1 ED Course: 12:50 Patient arrived in ED. rg4 12:51 France Deleon is Private Physician. rg4 12:53 Linwood Mata MD is Attending Physician. rt 12:56 Jennifer Ward, RN is Primary Nurse. me1 12:58 Arm band placed on Patient placed in an exam room, on a stretcher. ll1 13:01 Triage completed. ll1 13:10 Inserted saline lock: 20 gauge in right antecubital area, using aseptic technique. me1 13:10 Basic Metabolic Panel Sent. me1 13:11 CBC with Diff Sent. me1 13:11 Hepatic Function Sent. me1 13:11 High Sensitivity Troponin Sent. me1 13:11 Magnesium Sent. me1 13:11 Protime (+inr) Sent. me1 13:11 Ptt, Activated Sent. me1 13:25 CT Head Brain wo Cont In Process Unspecified. EDMS 13:25 CT Head Angio In Process Unspecified. EDMS 13:25 CT Neck Angio In Process Unspecified. EDMS 13:37 Jennifer Ward, RN is Primary Nurse. me1 13:53 Stroke CXR 1 View In Process Unspecified. EDMS 14:07 Patient has correct armband on for positive identification. Bed in low position. Call me1 light in reach. Side rails up X 1. Provided Education on: POC. Verbalized understanding. . 14:07 No provider procedures requiring assistance completed. me1 14:38 Tha Wang is Hospitalizing Provider. rt 19:56 Patient admitted, IV remains in place. me1 Administered Medications: No medications were administered Medication: 14:07 VIS not applicable for this client. me1 Outcome: 14:39 Decision to Hospitalize by Provider. rt 19:56 Admitted to Med/surg accompanied by nurse, via wheelchair, room 218, with chart, Report me1 called to ENRIQUE Patrick 19:56 Condition: stable 19:56 Instructed on the need for admit, 20:38 Patient left the ED. rv NIH Stroke Scale - NIH Stroke Score Date: 09/22/2023 Time: 19:54 Total Score = 1 10. Dysarthria (speech clarity - read or repeat words) - 0(Normal) 11. Extinction and Inattention (visual/tactile/auditory/spatial/personal) - 0(No abnormality) 1a. Level of Consciousness (LOC) - 0(Alert) 1b. Level of Consciousness (LOC) (Month \T\ Age) - 0(Both) 1c. LOC Commands (Open \T\ Closes Eyes/Bridge Worker) 2. Best Gaze (Lateral Gaze Paresis) - 0(Normal) 3. Visual Field Loss - 0(No visual loss) 4. Facial Palsy - 0(Normal) 5a. Left Arm: Motor (10-second hold) - 0(No drift) 5b. Right Arm: Motor (10-second hold) - 0(No drift) 6a. Left Leg: Motor (5-second hold - always test supine) - 0(No drift) 6b. Right Leg: Motor (5-second hold - always test supine) - 0(No drift) 7. Limb Ataxia (finger/nose \T\ heel/fam - test with eyes open) - 0(Absent) 8. Sensory Loss (pinprick arms/legs/face) - 1(Mild to moderate loss) 9. Best Language: Aphasia (description/naming/reading) - 0(No aphasia) Initials: me1 Signatures: Dispatcher [employer] Jennifer Teague rg4 Bj Hector RN RN rv Christos Hodgson RN RN ll1 Halima Golden RN RN ld1 Linwood Mata MD MD rt Jennifer Ward RN RN me1 Corrections: (The following items were deleted from the chart) 13:02 12:59 BP 159 / 103; Pulse 85bpm; Resp 17bpm; Pulse Ox 96% RA; Temp 98F; Pain ll1 0/10, Adult; ll1 14:07 12:59 Chief complaint: Patient states: R side of face, tongue and forehead feel me1 numb for the past 4-5 days. Copper taste to R side of mouth. ll1
--- NOTE | 2023-09-22 14:39 | EDPHYS ---
Physician Documentation [facility] Name: Colby Beltrán Age: 52 yrs Sex: Male : 1970 Arrival Date: 09/22/2023 Time: 12:47 Bed [id number] Private MD: France Deleon ED Physician Linwood Mata HPI: 09/22 14:58 This 52 yrs old Male presents to ER via Ambulatory with complaints of Numbness of rt Tongue, Numbness Of Face, Taste Of Copper. 14:58 Patient presents to the ED with 5 days of a right-sided numbness. Reports numbness to rt the right side of his face, right side of his tongue on the right arm. Denies any weakness. He reports a strange copper taste to his right tongue, states that taste is normal on the left tongue. Denies other acute complaints, symptoms are moderate severity, no other aggravating or alleviating factors.. Historical: - Allergies: 12:58 No Known Allergies; ll1 - PMHx: 12:58 COPD; diabetes mellitus; Asthma; GERD; Hypercholesterolemia; ll1 - PSHx: 12:58 B knee scopes; back SX x 5; R shoulder SX; ll1 - Immunization history:: Adult Immunizations up to date. - Social history:: Smoking status: Patient reports the use of cigarette tobacco products, smokes one-half pack cigarettes per day. - Family history:: not pertinent. ROS: 14:58 Constitutional: Negative for fever, chills, and weight loss, Cardiovascular: Negative rt for chest pain, palpitations, and edema, Respiratory: Negative for shortness of breath, cough, wheezing, and pleuritic chest pain, Abdomen/GI: Negative for abdominal pain, nausea, vomiting, diarrhea, and constipation, MS/Extremity: Negative for injury and deformity, Skin: Negative for injury, rash, and discoloration, Psych: Negative for depression, anxiety, suicide ideation, homicidal ideation, and hallucinations, 14:58 Neuro: Positive for numbness, Negative for weakness, Exam: 14:58 Constitutional: This is a well developed, well nourished patient who is awake, alert, rt and in no acute distress. Head/Face: Normocephalic, atraumatic. Chest/axilla: Normal chest wall appearance and motion. Nontender with no deformity. No lesions are appreciated. Cardiovascular: Regular rate and rhythm with a normal S1 and S2. No gallops, murmurs, or rubs. Normal PMI, no JVD. No pulse deficits. Respiratory: Lungs have equal breath sounds bilaterally, clear to auscultation and percussion. No rales, rhonchi or wheezes noted. No increased work of breathing, no retractions or nasal flaring. Abdomen/GI: Soft, non-tender, with normal bowel sounds. No distension or tympany. No guarding or rebound. No evidence of tenderness throughout. Skin: Warm, dry with normal turgor. Normal color with no rashes, no lesions, and no evidence of cellulitis. MS/ Extremity: Pulses equal, no cyanosis. Neurovascular intact. Full, normal range of motion. Psych: Awake, alert, with orientation to person, place and time. Behavior, mood, and affect are within normal limits. 14:58 Eyes: Extraocular muscles intact, no visual field deficits. 14:58 ECG was reviewed by the Attending Physician. 14:58 Neuro: Sensory deficit to the right side of the face, right side of the tongue, right arm, sensation otherwise intact, strength intact, no other cranial nerve deficits, speech normal, no ataxia on [id number], Vital Signs: 12:59 BP 159 / 103; Pulse 85; Resp 17; Temp 98; Pulse Ox 96% on R/A; Weight 115.67 kg; Height ll1 6 ft. 0 in. ; Pain 0/10; 13:00 BP 136 / 92; Pulse 84; Resp 16; Pulse Ox 92% on R/A; me1 14:00 BP 150 / 97; Pulse 75; Resp 19; Pulse Ox 93% on R/A; me1 17:41 BP 143 / 99; Pulse 70; Resp 19; Pulse Ox 97% on R/A; ld1 12:59 Body Mass Index 34.58 (115.67 kg, 182.88 cm) ll1 12:59 Pain Scale: Adult ll1 NIH Stroke Scale Scores: 19:54 NIHSS Score: 1 me1 MDM: 12:54 Patient medically screened. rt 14:58 Differential diagnosis: CVA, TIA, electrolyte disturbance. Data reviewed: vital signs, rt nurses notes, lab test result(s), EKG, radiologic studies. Consideration of Admission/Observation Patient was admitted/placed on observation. Management of patient was discussed with the following: Hospitalist: Agrees to admit. I considered the following discharge prescriptions or medication management in the emergency department Medications were administered in the Emergency Department. See MAR. Independent interpretation of the following test(s) in the Emergency Department CT Scan: My interpretation is No intracranial hemorrhage seen on interpretation of CT scan images. Care significantly affected by the following chronic conditions: Diabetes. Counseling: I had a detailed discussion with the patient and/or guardian regarding the historical points, exam findings, and any diagnostic results supporting the discharge/admit diagnosis, lab results, radiology results, the need for further work-up and treatment in the hospital. Response to treatment: There is no appreciated change of the patient's symptoms at this time. ED course: Patient symptoms have been present for 5 days, is not a tPA or endovascular treatment candidate. 09/22 13:00 Order name: Basic Metabolic Panel; Complete Time: 13:37 rt 09/22 13:00 Order name: CBC with Diff; Complete Time: 13:37 rt 09/22 13:00 Order name: Hepatic Function; Complete Time: 13:37 rt 09/22 13:00 Order name: High Sensitivity Troponin; Complete Time: 13:37 rt 09/22 13:00 Order name: Magnesium; Complete Time: 13:37 rt 09/22 13:00 Order name: Protime (+inr); Complete Time: 13:37 rt 09/22 13:00 Order name: Ptt, Activated; Complete Time: 13:37 rt 09/22 13:21 Order name: Glucose, Ancillary Testing; Complete Time: 13:37 EDMS 09/22 13:54 Order name: CREATININE WHOLE BLOOD; Complete Time: 14:00 EDMS 09/22 16:28 Order name: Vitamin B12 Level EDMS 09/22 16:28 Order name: Basic Metabolic Panel EDMS 09/22 16:28 Order name: Basic Metabolic Panel EDMS 09/22 16:28 Order name: Basic Metabolic Panel EDMD 09/22 16:28 Order name: Basic Metabolic Panel EDMS 09/22 16:28 Order name: Basic Metabolic Panel EDMS 09/22 16:28 Order name: Basic Metabolic Panel EDMS 09/22 16:28 Order name: Basic Metabolic Panel EDMS 09/22 16:28 Order name: Basic Metabolic Panel EDMD 09/22 16:28 Order name: Magnesium EDMS 09/22 16:28 Order name: Magnesium EDMS 09/22 16:28 Order name: Magnesium EDMS 09/22 16:28 Order name: Magnesium EDMS 09/22 16:28 Order name: Magnesium EDMS 09/22 16:28 Order name: Magnesium EDMS 09/22 16:28 Order name: Magnesium EDMS 09/22 16:28 Order name: Magnesium EDMS 09/22 16:28 Order name: Phosphorus EDMS 09/22 16:28 Order name: Phosphorus EDMS 09/22 16:28 Order name: Phosphorus EDMS 09/22 16:28 Order name: Vitamin D, 25 (OH), TOTAL EDMS 09/22 16:28 Order name: CBC with Automated Diff EDMS 09/22 16:28 Order name: CBC with Automated Diff EDMS 09/22 16:28 Order name: CBC with Automated Diff EDMS 09/22 16:28 Order name: CBC with Automated Diff EDMS 09/22 16:28 Order name: Phosphorus EDMS 09/22 16:28 Order name: Phosphorus EDMS 09/22 16:28 Order name: Phosphorus EDMS 09/22 16:28 Order name: Phosphorus EDMS 09/22 16:28 Order name: Phosphorus EDMS 09/22 16:28 Order name: T4,Total EDMS 09/22 16:28 Order name: T4,Total EDMS 09/22 16:28 Order name: Thyroid Stimulating Hormone EDMS 09/22 16:28 Order name: Thyroid Stimulating Hormone EDMS 09/22 16:28 Order name: RPR EDMS 09/22 16:28 Order name: CBC with Automated Diff EDMS 09/22 16:28 Order name: CBC with Automated Diff EDMS 09/22 16:28 Order name: CBC with Automated Diff EDMS 09/22 16:28 Order name: CBC with Automated Diff EDMS 09/22 16:29 Order name: Anti-Thrombin III Activity EDMS 09/22 16:29 Order name: C-ANCA Anti-Proteinase 3 EDMS 09/22 16:29 Order name: Cardiolipin Antibodies G,M EDMS 09/22 16:29 Order name: Factor V Leiden Mutation EDMS 09/22 16:29 Order name: Homocysteine EDMS 09/22 16:29 Order name: Miscellaneous Test Lab EDMS 09/22 16:29 Order name: P-ANCA Anti-Myeloperoxidase Ab EDMS 09/22 16:29 Order name: Protein C Antigen EDMS 09/22 16:29 Order name: Protein Electo w/M Harjinder Serum EDMS 09/22 16:29 Order name: Protein S (Total EDMS 09/22 16:29 Order name: PROTHROMBIN GENE ANALYSIS (F2) EDMS 09/22 19:09 Order name: Glucose, Ancillary Testing EDMS 09/22 13:00 Order name: Stroke CXR 1 View; Complete Time: 14:16 rt 09/22 13:00 Order name: CT Head Brain wo Cont; Complete Time: 13:37 rt 09/22 13:00 Order name: CT Head Angio; Complete Time: 14:00 rt 09/22 13:00 Order name: CT Neck Angio; Complete Time: 14:00 rt 09/22 16:28 Order name: Echo with Doppler EDMS 09/22 16:28 Order name: Stroke Protocol EDMD 09/22 17:21 Order name: MRI EDMD 09/22 13:00 Order name: EKG; Complete Time: 13:01 rt 09/22 16:28 Order name: CONS Physician Consult EDMD 09/22 16:28 Order name: IRF Screen EDMD 09/22 16:28 Order name: Physical Therapy Consult EDMD 09/22 16:29 Order name: Speech Therapy Consult EDMD 09/22 13:00 Order name: Accucheck; Complete Time: 13:10 rt 09/22 13:00 Order name: Cardiac monitoring; Complete Time: 13:33 rt 09/22 13:00 Order name: EKG - Nurse/Tech; Complete Time: 13:33 rt 09/22 13:00 Order name: IV Saline Lock; Complete Time: 13:10 rt 09/22 13:00 Order name: Labs collected and sent; Complete Time: 13:10 rt 09/22 13:00 Order name: NPO; Complete Time: 13:14 rt 09/22 13:00 Order name: O2 Per Protocol; Complete Time: 13:10 rt 09/22 13:00 Order name: O2 Sat Monitoring; Complete Time: 13:10 rt 09/22 13:00 Order name: Stroke Swallow Screen; Complete Time: 17:46 rt EC:58 Rate is 84 beats/min. Rhythm is regular, Normal Sinus Rhythm with No ectopy. QRS [place] rt is Normal. UT interval is normal. QRS interval is normal. QT interval is normal. No Q waves. T waves are Normal. No ST changes noted. Interpreted by me. Administered Medications: No medications were administered Disposition Summary: 09/22/23 14:39 Hospitalization Ordered Notes: Hospitalization Status: Observation rt Provider: Tha Wang rt Condition: Stable rt Problem: new rt Symptoms: are unchanged rt Bed/Room Type: Standard rt Location: Telemetry/MedSurg (observation)(09/22/23 19:17) ty Room Assignment: 218(09/22/23 19:17) ty Diagnosis - Right-sided numbness rt Forms: - Medication Reconciliation Form rt - SBAR form rt - Leadership Thank You Letter rt NIH Stroke Scale - NIH Stroke Score Date: 09/22/2023 Time: 19:54 Total Score = 1 10. Dysarthria (speech clarity - read or repeat words) - 0(Normal) 11. Extinction and Inattention (visual/tactile/auditory/spatial/personal) - 0(No abnormality) 1a. Level of Consciousness (LOC) - 0(Alert) 1b. Level of Consciousness (LOC) (Month \T\ Age) - 0(Both) 1c. LOC Commands (Open \T\ Closes Eyes/Hris Coordinator) 2. Best Gaze (Lateral Gaze Paresis) - 0(Normal) 3. Visual Field Loss - 0(No visual loss) 4. Facial Palsy - 0(Normal) 5a. Left Arm: Motor (10-second hold) - 0(No drift) 5b. Right Arm: Motor (10-second hold) - 0(No drift) 6a. Left Leg: Motor (5-second hold - always test supine) - 0(No drift) 6b. Right Leg: Motor (5-second hold - always test supine) - 0(No drift) 7. Limb Ataxia (finger/nose \T\ heel/fam - test with eyes open) - 0(Absent) 8. Sensory Loss (pinprick arms/legs/face) - 1(Mild to moderate loss) 9. Best Language: Aphasia (description/naming/reading) - 0(No aphasia) Initials: me1 Signatures: Dispatcher [employer] EDKalina Lepe Lynsay, RN RN ll1 Linwood Mata MD MD rt Alexis Rodgers ty Corrections: (The following items were deleted from the chart) 16: 14:39 Telemetry/MedSurg (observation) rt bd 16:04 14:39 rt bd 19:17 16:04 [facility] ER HOLD bd ty 19:17 16:04 ERHOLD- bd ty
--- NOTE | 2023-09-22 15:12 | P.HP ---
Certification for Inpatient Patient admitted to: Observation With expected LOS: >2 Midnights Patient will require the following post-hospital care: None Practitioner: I am a practitioner with admitting privileges, knowledge of patient current condition, hospital course, and medical plan of care. Services: Services provided to patient in accordance with Admission requirements found in Title 42 Section 412.3 of the Code of Federal Regulations Patient History Date of Service: 09/22/23 Reason for admission: TIA vs CVA History of Present Illness: Colby Beltrán is a 52-year-old male with past medical history of COPD, diabetes mellitus, asthma, GERD, hypercholesterolemia who presents to the ED with complaints of right-sided face numbness, right ear numbness, center of the tongue to the right numbness, strange taste to the right side of his tongue, and intermittent dizziness. He reports not feeling this way before in the past. He reports needing a root canal to a bottom left tooth prior to these new symptoms. He does smoke 1 pack every day and denies drinking and alcohol use. He does see a pain management doctor for his lumbar surgery from the past who provided Vicodin. Initial vitals BP 159 / 103; Pulse 85; Resp 17; Temp 98; Pulse Ox 96% on R/A Significant laboratory evaluation BUN/creatinine 17/1.35, GFR 63, PT/INR 10.9/0.99, APTT 37.1 CT neck angio reports "Distal left vertebral artery is very small with diminished opacification. This probably is a normal finding as the artery is hypoplastic. A dissection can also have this appearance. MRI the brain may be helpful for further evaluation" CT head angio reports ' origin of the posterior cerebral arteries. The distal internal carotid, basilar, anterior cerebral, middle cerebral and posterior cerebral arteries do not demonstrate a significant stenosis. An aneurysm is not seen. No large vessel occlusion IMPRESSION: No significant abnormality is displayed" CT brain without contrast reports "An intracranial bleed is not seen. The ventricles are normal in caliber. No significant hypodense areas within the brain visualized. No extra-axial fluid collection is noted. Fluid within the sinuses/ mastoids is not seen. IMPRESSION: No acute intracranial abnormality is seen If patient's symptoms persist MRI of the brain would be recommended" Chest x-ray reports "The lungs appear clear of acute infiltrate. The heart is normal size. IMPRESSION: No acute abnormalities displayed" Colby will be admitted to hospitalist service for further evaluation and treatment of TIA versus CVA. Allergies No Known Allergies Allergy (Verified 06/19/23 14:44) Home Medications: Acetaminophen [Tylenol Extra Strength] 1,000 mg PO BID 01/11/23 Ibuprofen [Motrin*] 800 mg PO BID 01/11/23 Metformin ER [Glucophage ER*] 750 mg PO BID 01/11/23 glipiZIDE [Glipizide] 10 mg PO DAILY 01/11/23 Albuterol Neb [Proventil 0.083% Neb Soln] 2.5 mg IH BID 06/19/23 Budesonide/Formoterol Fumarate [Symbicort 160-4.5 Mcg Inhaler] 2 puff IH DAILY 06/19/23 Gabapentin 300 mg PO TID 06/19/23 Omeprazole 10 mg PO DAILY 06/19/23 Rosuvastatin [Crestor] 10 mg PO BEDTIME 06/19/23 methocarbamoL [Methocarbamol] 750 mg PO BID 06/19/23 predniSONE [Deltasone] 10 mg PO DAILY 06/19/23 - Past Medical/Surgical History Diabetic: Yes -: DM -: COPD -: Back surg (5x) -: [place] knee scopes -: R Shoulder Psychosocial/ Personal History: Patient lives at home with family is retired - Social History Alcohol use: No CD- Drugs: No Caffeine use: Yes Review of Systems ENT: Other (right face, tongue, and ear numbness) Physical Examination - Physical Exam General: Alert, In no apparent distress, Oriented x3 HEENT: Atraumatic, Normocephalic, PERRLA Neck: Supple, 2+ carotid pulse no bruit, JVD not distended Respiratory: Clear to auscultation bilaterally, Normal air movement Cardiovascular: No edema, Normal pulses, Regular rate/rhythm, Normal S1 S2 Capillary refill: <2 Seconds Gastrointestinal: Normal bowel sounds, Soft and benign Musculoskeletal: No clubbing, No swelling, No contractures Integumentary: No rashes, No breakdown, No significant lesion Neurological: Normal strength at 5/5 x4 extr, Normal tone, Abnormal speech (slurred, dysarthria) - Studies Laboratory Data (last 24 hrs) 09/22/23 09/22/23 09/22/23 13:08 13:08 13:08 WBC 7.80 Hgb 15.0 Hct 43.7 Plt Count 205 PT 10.9 INR 0.99 APTT 37.1 H Sodium 140 Potassium 3.7 BUN 17 Creatinine 1.35 H Glucose 144 H Magnesium 1.8 Total Bilirubin 0.4 AST 21 ALT 29 Alkaline Phosphatase 83 Assessment and Plan - Plan Assessment and plan TIA vs CVA History of lumbar surgery Dr. Bhagat consulted MRI and ECHO ordered initial BP 159 / 103 Allow permissive HTN for the first 24 hours Aspirin, statin, folic acid daily lipid panel, TSH/T4 pending NIHSS 1 (dysarthria=mild -moderate with slurring speech) COPD nebs Mucinex, tessalon perle Diabetes mellitus NIDDM Accucheck with sliding scale insulin serum glucose 144 ADONAY BUN/creatinine 17/1.35, GFR 63 gentle IVF Hypertensive disorder hypercholesterolemia Allow permissive hypertension first 24 hours Restart home medications when appropriate Smoking abuse 1/2 pack daily Cessation education DVT PPx lovenox [place] code LOS 2-3 days Discharge Plan: Home Plan to discharge in: 48 Hours - Advance Directives Does patient have a Living Will: No Does patient have a Durable POA for Healthcare: No Time Spent Managing Pts Care (In Minutes): 50
[2023-09-22] MEDS: INSULIN REGULAR (HUMAN) 100 UNIT/ML SQ SCH (16:30)
[2023-09-22] MEDS ORDERED: BENZONATATE 100 MG CAP PO PRN (16:54)
[2023-09-22] MEDS: FOLIC ACID 1 MG TABLET PO SCH (17:00)
[2023-09-22] MEDS: NA CHLORIDE 0.9% 1,000 ML IV SCH (17:00)
--- NOTE | 2023-09-22 17:20 | RAD REPORT ---
EXAM DESCRIPTION: MRI - Brain Wo Cont - 09/22/2023 5:06 pm CLINICAL HISTORY: CVA. Right numbness COMPARISON: Head CT September 22, 2023 TECHNIQUE: Axial, sagittal, and coronal magnetic resonance images of the brain were obtained. FINDINGS: No significant abnormal signal within the brain Diffusion-weighted/ADC mapping does not reveal evidence of acute infarction. The ventricles are normal caliber. An extra-axial fluid collection is not noted. Fluid within the sinuses/mastoids is not seen IMPRESSION: Unremarkable exam
[2023-09-22] MEDS ORDERED: NA CHLORIDE 0.9% 1,000 ML ONE (18:58)
[2023-09-22] MEDS ORDERED: FOLIC ACID 1 MG TABLET ONE (18:58)
[2023-09-22] MEDS ORDERED: HYDRALAZINE HCL 20 MG/ML VIAL IV PRN (19:44)
[2023-09-22] MEDS: ALBUTEROL 2.5 MG/3 ML NEB SOL NEB PRN (22:05)
[2023-09-22] MEDS: ATORVASTATIN 40 MG TAB PO SCH (22:19)
[2023-09-22] MEDS: GUAIFENESIN 600 MG SA TAB PO SCH (22:19)
[2023-09-22 23:37] VITALS: BMI 34.5
[2023-09-23 04:55] LABS: Absolute Lymphocytes (CBC) 2.4 K/uL (0.7-4.9); Hematocrit 41.4 % (39.6-49.0); Lymphocytes % 28.1 % (15.3-44.8); MCV 91.1 fL (80-100); MPV 9.1 fL (7.6-11.3); Platelets 185 thou/uL (152-406); RBC Red Blood Cell Count 4.55 M/uL (4.33-5.43)
[2023-09-23 05:29] LABS: Magnesium 1.8 mg/dL (1.6-2.4); Phosphorus 2.6 mg/dL (2.5-4.9); Potassium 4.1 mEq/L (3.5-5.1); T4,Total 9.2 ug/dL (4.5-12.1); Thyroid Stimulating Hormone 0.753 uIU/mL (0.358-3.740)
[2023-09-23 06:20] LABS: RPR (Rapid Plasma Reagin) NON-REACT (NON-REACT)
[2023-09-23] MEDS: MAGNESIUM SULFATE 1 gm IVPB 1 GM/100 ML BAG IV ONE (08:49)
[2023-09-23] MEDS: ASPIRIN EC 81 MG TAB PO SCH (08:51)
[2023-09-23 09:06] VITALS: BP 120/79; TEMP 97.1; O2SAT 94
--- NOTE | 2023-09-23 13:18 | ECHO ---
HEIGHT: 6 ft 0 in WEIGHT: 255 lb 0.139 oz DATE OF STUDY: 09/23/[address]: Anne Marie Best NP 2-DIMENSIONAL: YES M.MODE: YES DOPPLER: YES COLOR FLOW: YES TDS: PORTABLE: YES DEFINITY: BUBBLE STUDY: DIAGNOSIS: STROKE CARDIAC HISTORY: CATHERIZATION: YES SURGERY: NO PROSTHETIC VALVE: NO PACEMAKER: NO MEASUREMENTS (cm) DIASTOLIC (NORMALS) SYSTOLIC (NORMALS) IVSd 1.2 (0.6-1.2) LA Diam 2.5 (1.9-4.0) LVEF 68% LVIDd 4.7 (3.5-5.7) LVIDs 2.9 (2.0-3.5) %FS 38% LVPWd 1.2 (0.6-1.2) Ao Diam 2.8 (2.0-3.7) 2 DIMENSIONAL ASSESSMENT: RIGHT ATRIUM: NORMAL LEFT ATRIUM: NORMAL RIGHT VENTRICLE: NORMAL LEFT VENTRICLE: NORMAL TRICUSPID VALVE: NORMAL MITRAL VALVE: NORMAL PULMONIC VALVE: NOT WELL VISUALIZED AORTIC VALVE: NORMAL PERICARDIAL EFFUSION: NONE AORTIC ROOT: NORMAL LEFT VENTRICULAR WALL MOTION: NORMAL DOPPLER/COLOR FLOW: NORMAL COMMENTS: 1. NORMAL LEFT VENTRICULAR SYSTOLIC FUNCTION, EJECTION FRACTION 55%, NORMAL WALL MOTION 2. NORMAL DIASTOLIC FUNCTION TECHNOLOGIST: SONDRA PINEDA
--- NOTE | 2023-09-23 18:56 | P.DS ---
Admission Date: 09/22/23 Discharge Date: 09/23/23 Disposition: ROUTINE DISCHARGE Discharge Condition: FAIR Reason for Admission: TIA vs CVA Brief History of Present Illness: Colby Beltrán is a 52-year-old male with past medical history of COPD, diabetes mellitus, asthma, GERD, hypercholesterolemia who presents to the ED with complaints of right-sided face numbness, right ear numbness, center of the tongue to the right numbness, strange taste to the right side of his tongue, and intermittent dizziness. He reports not feeling this way before in the past. He reports needing a root canal to a bottom left tooth prior to these new symptoms. He does smoke 1 pack every day and denies drinking and alcohol use. He does see a pain management doctor for his lumbar surgery from the past who provided Vicodin. Initial vitals BP 159 / 103; Pulse 85; Resp 17; Temp 98; Pulse Ox 96% on R/A Significant laboratory evaluation BUN/creatinine 17/1.35, GFR 63, PT/INR 10.9/0.99, APTT 37.1 CT neck angio reports "Distal left vertebral artery is very small with diminished opacification. This probably is a normal finding as the artery is hypoplastic. A dissection can also have this appearance. MRI the brain may be helpful for further evaluation" CT head angio reports ' origin of the posterior cerebral arteries. The distal internal carotid, basilar, anterior cerebral, middle cerebral and posterior cerebral arteries do not demonstrate a significant stenosis. An aneurysm is not seen. No large vessel occlusion IMPRESSION: No significant abnormality is displayed" CT brain without contrast reports "An intracranial bleed is not seen. The ventricles are normal in caliber. No significant hypodense areas within the brain visualized. No extra-axial fluid collection is noted. Fluid within the sinuses/ mastoids is not seen. IMPRESSION: No acute intracranial abnormality is seen If patient's symptoms persist MRI of the brain would be recommended" Chest x-ray reports "The lungs appear clear of acute infiltrate. The heart is normal size. IMPRESSION: No acute abnormalities displayed" Colby will be admitted to hospitalist service for further evaluation and treatment of TIA versus CVA. Vital Signs/Physical Exam: Temp Pulse Resp BP Pulse Ox 97.1 F 90 18 120/79 94 09/23/23 08:00 09/23/23 08:00 09/23/23 08:00 09/23/23 08:00 09/23/23 08:00 Laboratory Data at Discharge: WBC 8.70 thou/uL (4.3-10.9) 09/23/23 03:56 Hgb 14.1 g/dL (13.6-17.9) 09/23/23 03:56 Hct 41.4 % (39.6-49.0) 09/23/23 03:56 Plt Count 185 thou/uL (152-406) 09/23/23 03:56 PT 10.9 SECONDS (9.5-12.5) 09/22/23 13:08 INR 0.99 09/22/23 13:08 APTT 37.1 SECONDS (24.3-36.9) H 09/22/23 13:08 Sodium 141 mEq/L (136-145) 09/23/23 03:56 Potassium 4.1 mEq/L (3.5-5.1) 09/23/23 03:56 BUN 18 mg/dL (7-18) 09/23/23 03:56 Creatinine 1.37 mg/dL (0.70-1.30) H 09/23/23 03:56 Glucose 202 mg/dL (74-106) H 09/23/23 03:56 Phosphorus 2.6 mg/dL (2.5-4.9) 09/23/23 03:56 Magnesium 1.8 mg/dL (1.6-2.4) 09/23/23 03:56 Total Bilirubin 0.4 mg/dL (0.2-1.0) 09/22/23 13:08 AST 21 U/L (15-37) 09/22/23 13:08 ALT 29 U/L (16-61) 09/22/23 13:08 Alkaline Phosphatase 83 U/L (45-117) 09/22/23 13:08 Triglycerides 288 mg/dL (<150) H 09/23/23 03:56 Cholesterol 123 mg/dL (<200) 09/23/23 03:56 HDL Cholesterol 37 mg/dL (40-60) L 09/23/23 03:56 Cholesterol/HDL Ratio 3.32 09/23/23 03:56 Home Medications: Metformin ER [Glucophage ER*] 750 mg PO BID 01/11/23 glipiZIDE [Glipizide] 5 mg PO DAILY 01/11/23 Gabapentin 300 mg PO TID 06/19/23 Rosuvastatin [Crestor*] 5 mg PO BEDTIME 06/19/23 Albuterol Sulfate [Albuterol Sulfate Hfa] 2 puff IH TID PRN 09/22/23 Budesonide/Formoterol Fumarate [Breyna 160-4.5 Mcg Inhaler] 2 puff IH BID 09/22/23 Aspirin [Aspirin EC] 81 mg PO DAILY #30 tab 09/23/23 Folic Acid 1 mg PO DAILY #30 tab 09/23/23 New Medications: Aspirin [Aspirin EC] 81 mg PO DAILY #30 tab Folic Acid 1 mg PO DAILY #30 tab Physician Discharge Instructions: Colby Beltrán presented to the ED with complaints of right-sided face numbness right ear numbness, center of tongue to the right tongue numbness, strange taste to the right side of his tongue and intermittent dizziness. CT head and neck reports negative for bleeding, CT brain without contrast showed no acute intracranial abnormality also MRI brain negative for intracranial abnormality. Symptoms have improved. With some residual numbness. Could be a cranial neuropathy. Please follow-up with Dr. Bhagat for further evaluation. Continue with blood pressure medications to keep her blood pressure under control. Follow-up with your PCP in 1 week to review your medications. 1. Please call and schedule a follow-up appointment with your PCP in 3-5 days - Please follow-up with your PCP for medication refills/adjustments 2. Please call and schedule a follow-up appointment with Dr. Bhagat in one week. 3. Continue heart healthy and diabetic diet. 4. No activity restrictions at this time 5. Return to ED if symptoms worsen New medications Aspirin 81 mg p.o. daily Folic acid 1 mg p.o. daily Diet: AHA Followup: Declan Bhagat MD [ASSOCIATE-ACTIVE - CAN ADMIT] - 1-2 Weeks France Deleon MD [Primary Care Provider] -
--- NOTE | 2023-09-24 16:14 | EKG ---
Test Date: 2023-09-22 Test Time: 13:30:44 Head Of Operation And Logistics: CHANDRA MEASUREMENT RESULTS: Intervals: Rate: 84 AK: 164 QRSD: 92 QT: 386 QTc: 456 [place]: P: 51 AK: 164 QRS: 56 T: 75 INTERPRETIVE STATEMENTS: Normal sinus rhythm Normal ECG Compared to ECG 01/11/2023 18:42:15 No significant changes Electronically Signed On 09-24-23 16:06:56 [employer] SPECIALIST by Pankaj Ott
== END 2023-09-23 10:55 | disposition home or self-care (01) ==
LOC: ER 12:47 → ERHOLD 16:19 → 2ND 19:28
PROVIDERS: ADMIT Internal Medicine; ATTEND Internal Medicine
DX: R20.0 Anesthesia of skin (principal); N17.9 Acute kidney failure, unspecified; J44.9 Chronic obstructive pulmonary disease, unspecified; E11.9 Type 2 diabetes mellitus without complications; J45.909 Unspecified asthma, uncomplicated; K21.9 Gastro-esophageal reflux disease without esophagitis; E78.00 Pure hypercholesterolemia, unspecified; I10 Essential (primary) hypertension; F17.210 Nicotine dependence, cigarettes, uncomplicated; Z71.6 Tobacco abuse counseling
CPT/HCPCS: 93005; 93306; 85025 ×2; 80048 ×2; 36415; 83735 ×2; 84100; 85610; 80061; 82565; 82947 ×4; 80076; 86592; 85730; 84436; 84443; 84484; 82607; 81241; 81240; 86147; 82306; 86146 ×3; 83090; 85300; 85302; 85305; 85306; 86021 ×2; 84165; 70450; 70496; 70498; 71045; 70551; 97116; 97161; 83516 ×2; Q9967; J1815; J3475; J7613; J7030 ×3; G0378

== ENCOUNTER 2024-09-02 06:00 | Day surgery (SDC) | payer OTHER ==
--- NOTE | 2024-09-01 09:43 | RAD REPORT ---
EXAMINATION: TWO VIEW CHEST XR CLINICAL INDICATION: Male, 53 years old. [facility] MAIN pre op for day surgery. Asthma TECHNIQUE: 2 view radiographs of the chest were performed. COMPARISON: 09/22/2023. FINDINGS: The lungs are well inflated and clear. No pneumothorax or sizable effusion. The heart is normal in si ze. Mediastinal contours are unremarkable. IMPRESSION: No acute or significant abnormalities.
[2024-09-01 09:52] LABS: Absolute Basophils 0.1 K/uL (0-0.5); Absolute Eosinophils 0.5 K/uL (0-0.5); Absolute Monocytes 0.9 K/uL (0.1-1.3); Absolute Neutrophil 4.5 K/uL (1.8-8.0); Basophils % 1.2 % (0-1.3); Eosinophils % 5.7 % (0-4.4); Hematocrit 46.2 % (39.6-49.0); Hemoglobin 15.4 g/dL (13.6-17.9); Lymphocytes % 33.5 % (15.3-44.8); MCH 31.5 pg (27.0-35.0); MCHC 33.3 g/dL (32.0-36.0); MCV 94.4 fL (80-100); MPV 9.3 fL (7.6-11.3); Monocytes % 9.9 % (3.3-12.3); Neutrophils % 49.7 % (41.7-73.7); Nucleated RBC Absolute Count 0.1 (0-0); Nucleated Red Blood Cells % 0.5 % (0-0); Platelets 220 thou/uL (152-406); RBC Red Blood Cell Count 4.89 M/uL (4.33-5.43); Red Cell Distribution Width 12.8 % (12.1-15.2)
[2024-09-01 09:55] LABS: PT Prothrombin Time 10.5 SECONDS (9.4-12.5)
[2024-09-02] MEDS ORDERED: NA CHLORIDE 0.9% 1,000 ML ONE (06:22)
[2024-09-02] MEDS ORDERED: FENTANYL CITR 100 MCG/2 ML ONE (07:15)
[2024-09-02] MEDS ORDERED: dexAMETHasone 10 MG/ML VIAL ONE ×2 (07:15→07:56)
[2024-09-02] MEDS ORDERED: EPINEPHRINE 1 MG/ML VIAL ONE (07:15)
[2024-09-02] MEDS ORDERED: MIDAZOLAM HCL 2 MG/2 ML INJ ONE (07:15)
[2024-09-02] MEDS ORDERED: LIDOCAINE 1% MPF 5 ML VIAL ONE (07:15)
[2024-09-02] MEDS ORDERED: BUPIVACAINE 0.5% PF 10 ML VIAL ONE (07:16)
[2024-09-02] MEDS ORDERED: KETOROLAC 30 MG/ML INJ ONE (07:56)
[2024-09-02] MEDS ORDERED: NS 0.9% VIAL 20 ML ONE (07:56)
[2024-09-02] MEDS ORDERED: LIDOCAINE 2% MPF 5 ML VIAL ONE (07:56)
[2024-09-02] MEDS ORDERED: propofoL 200 MG/20 ML VIAL IV ONE (07:56)
[2024-09-02] MEDS ORDERED: ONDANSETRON 4 MG/2 ML VIAL ONE (07:56)
[2024-09-02] MEDS ORDERED: ROCURONIUM 50 MG/5 ML VIAL IV ONE (07:57)
[2024-09-02] MEDS ORDERED: EPHEDRINE SULF 50 MG/ML VIAL ONE (07:57)
[2024-09-02] MEDS: EPINEPHRINE 1 MG/ML VIAL ONE (08:00)
[2024-09-02] MEDS: CEFAZOLIN SODIUM 2 GM/VIAL ONE (08:00)
[2024-09-02] MEDS ORDERED: NS 0.9% VIAL 10 ML ONE (08:31)
[2024-09-02] MEDS: NA CHLORIDE 0.9% 1,000 ML ONE (09:00)
--- NOTE | 2024-09-02 10:25 | P.BOP ---
Preoperative diagnosis: left rotator cuff tear, biceps tendinitis, impingement syndrome Postoperative diagnosis: same, left shoulder SLAP tear Primary procedure: left shoulder arthroscopic rotator cuff repair Secondary procedure: left shoulder arthroscopic biceps tenotomy with SLAP debr idement Other procedure(s): left shoulder arthroscopic subacromial decompression Manager Card: NONE,NONE Estimated blood loss: 5 cc Specimen: none Findings: see dictation Anesthesia: General Complications: None Implants: 1- 4.75 mm arthrex swivelock Fluids & blood products: per anesthesia record Transferred to: Recovery Room Condition: Good
--- NOTE | 2024-09-02 10:55 | RAD REPORT ---
Exam:Shoulder 1 View History: Right shoulder surgery Findings: No fracture or dislocation seen Marked osteoarthritis AC joint consisting of osteophytes and joint space narrowing.
[2024-09-02] MEDS: HYDROCODONE/APAP 7.5/325 MG TAB ONE (11:28)
[2024-09-02 15:25] VITALS: BP 138/79; TEMP 97; O2SAT 79
== END 2024-09-02 12:35 | disposition home or self-care (01) ==
LOC: OR 06:00
PROVIDERS: ATTEND Orthopaedic Surgery Sports Medicine
PROC: 0LM24ZZ Reattachment of Left Shoulder Tendon, Percutaneous Endoscopic Approach (ICD-10-PCS; 2024-09-02)
PROC: 0RNK4ZZ Release Left Shoulder Joint, Percutaneous Endoscopic Approach (ICD-10-PCS; principal; 2024-09-02 08:00)
DX: M75.102 Unspecified rotator cuff tear or rupture of left shoulder, not specified as traumatic (principal); S46.012A Strain of muscle(s) and tendon(s) of the rotator cuff of left shoulder, initial encounter; M75.42 Impingement syndrome of left shoulder; M75.22 Bicipital tendinitis, left shoulder
CPT/HCPCS: 29827; 29826; 29822; 85025; 80048; 36415; 85610; 82947 ×2; 85730; 71046; 73020; A4216 ×2; J2704; J2003 ×2; J2250; J3010; J1100 ×2; J0171 ×2; J2405; J7030 ×2; 93005

== ENCOUNTER 2024-11-26 17:36 | Emergency (ER) | payer OTHER ==
[2024-11-26] MEDS ORDERED: dexAMETHasone 10 MG/ML VIAL ONE (18:15)
[2024-11-26] MEDS ORDERED: DIPHENHYDRAMINE 50 MG/ML VIAL ONE (18:15)
[2024-11-26] MEDS ORDERED: MORPHINE 4 MG/ML SYR ONE (18:15)
[2024-11-26] MEDS ORDERED: NA CHLORIDE 0.9% 1,000 ML ONE (18:16)
[2024-11-26] MEDS ORDERED: EPINEPHRINE INH 0.5 ML VIAL IH ONE (18:16)
[2024-11-26 18:23] LABS: Absolute Basophils 0.1 K/uL (0-0.5); Absolute Eosinophils 0.3 K/uL (0-0.5); Absolute Monocytes 1.6 K/uL (0.1-1.3); Absolute Neutrophil 9.1 K/uL (1.8-8.0); Basophils % 0.6 % (0-1.3); Eosinophils % 2.4 % (0-4.4); Hematocrit 42.1 % (39.6-49.0); Hemoglobin 14.7 g/dL (13.6-17.9); Lymphocytes % 14.9 % (15.3-44.8); MCH 31.8 pg (27.0-35.0); MCV 90.9 fL (80-100); MPV 8.9 fL (7.6-11.3); Monocytes % 12.4 % (3.3-12.3); Neutrophils % 69.7 % (41.7-73.7); Platelets 174 thou/uL (152-406); RBC Red Blood Cell Count 4.63 M/uL (4.33-5.43); Red Cell Distribution Width 12.9 % (12.1-15.2)
[2024-11-26] MEDS ORDERED: LIDOCAINE VISCOUS 2% 10ML ORAL SOLN ONE (18:48)
--- NOTE | 2024-11-26 20:16 | RAD REPORT ---
EXAM: Soft Tissue Neck W/Contr INDICATION: subjective swelling of throat, possible chemical inhalation TECHNIQUE: Helical CT examination of the neck with IV contrast. Sagittal and coronal reformations wer e generated. This exam was performed according to our departmental dose-optimization program, which includes automated exposure control, adjustment of the mA and/or kV according to patient size and/or use of iterative reconstruction technique. COMPARISON: None. FINDINGS: Aerodigestive Tract Structures: Question mild edema at the uvula and pharyngeal mucosa. There is some asymmetry of the left lateral posterior oropharynx. No fluid collection or radiopaque foreign body.. Lymph Nodes: No pathologic appearing cervical lymph nodes. Parotid Glands: Normal Submandibular Glands: Normal Thyroid Gland: Normal Included Intracranial Structures: Normal Included Orbits: Normal Paranasal Sinuses: Opacified left sphenoid sinus and posterior ethmoid air cells. Tympanomastoid Cavities: Normal Vascular Structures: Normal Osseous Structures: Degenerative changes in the cervical spine. Prominent anterior bridging osteophy allison in the cervical spine. Included Lung Apices: Normal IMPRESSION: No definite acute findings. Question some edema of the uvula and posterior pharyngeal mucosa but no f luid collections, significant airway narrowing, or foreign body.
--- NOTE | 2024-11-26 20:24 | EDPHYS ---
Physician Documentation [facility] Name: Colby Beltrán Age: 53 yrs Sex: Male : 1970 Arrival Date: 11/26/2024 Time: 17:36 Bed 5 Private MD: ED Physician Linwood Mata HPI: 11/26 18:41 This 53 yrs old Male presents to ER via Ambulatory with complaints of chemical exposure.rn 18:42 The patient presents with sore throat. The patient describes throat pain as raw. 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 He irrigated at his mouth and drink water to try to clear it, feels raw sensation and sore throat that radiates into the neck with subjective swelling. No trouble speaking or breathing. Patient reports pain with swallowing.. Historical: - Allergies: 17:52 No Known Allergies; aa5 - PMHx: 17:52 Asthma; COPD; diabetes mellitus; GERD; Hypercholesterolemia; aa5 - PSHx: 17:52 B knee scopes; back SX x 5; R shoulder SX; aa5 - Immunization history:: Adult Immunizations unknown. - Infectious Disease History:: Denies. - Social history:: Smoking status: Patient reports the use of cigarette tobacco products. - Family history:: not pertinent. - Hospitalizations: : No recent hospitalization is reported. ROS: 18:42 Constitutional: Negative for fever, chills, and weight loss, ENT: Positive for sore rn throat Cardiovascular: Negative for chest pain, palpitations, and edema, Respiratory: Negative for shortness of breath, cough, wheezing, and pleuritic chest pain, Abdomen/GI: Negative for abdominal pain, nausea, vomiting, diarrhea, and constipation, MS/Extremity: Negative for injury and deformity, Skin: Negative for injury, rash, and discoloration, Neuro: Negative for headache, weakness, numbness, tingling, and seizure, Exam: 18:42 Constitutional: This is a well developed, well nourished patient who is awake, alert, rn appears anxious Head/Face: Normocephalic, atraumatic. ENT: No stridor, mild pharyngeal erythema without swelling. Uvula midline. Neck: No neck swelling or masses. Is tender bilateral submandibular region Cardiovascular: Tachycardic, regular Respiratory: Tachypneic, appears anxious, no retractions Skin: No external michaels Vital Signs: 17:53 BP 134 / 105; Pulse 116; Resp 18 S; Temp 98.7(O); Pulse Ox 96% on R/A; aa5 18:25 BP 119 / 95; Pulse 109; Resp 18; Pulse Ox 99% on Nebulizer Mask; hb 18:54 BP 149 / 103; Pulse 99; Resp 21; Pulse Ox 95% on R/A; hb 20:44 BP 131 / 96; Pulse 98; Resp 18; Temp 98.7; Pulse Ox 96% ; Pain 0/10; bm8 20:44 Pain Scale: Adult bm8 [place] Coma Score: 20:44 Eye Response: spontaneous(4). Motor Response: obeys commands(6). Verbal Response: bm8 oriented(5). Total: 15. MDM: 17:46 Medical Screening Exam initiated rn 21:58 Differential diagnosis: Airway edema, localized reaction. Data reviewed: vital signs, rt nurses notes, lab test result(s), radiologic studies. I considered the following discharge prescriptions or medication management in the emergency department Medications were administered in the Emergency Department. See MAR. Independent interpretation of the following test(s) in the Emergency Department CT Scan: My interpretation is No fluid collection seen on my interpretation of CT scan images. Care significantly affected by the following chronic conditions: Diabetes. Counseling: I had a detailed discussion with the patient and/or guardian regarding the historical points, exam findings, and any diagnostic results supporting the discharge/admit diagnosis, lab results, radiology results, the need for outpatient follow up. Response to treatment: the patient's symptoms have markedly improved after treatment. 11/26 17:53 Order name: CBC with Diff; Complete Time: 18:39 rn 11/26 17:53 Order name: Basic Metabolic Panel; Complete Time: 19:16 rn 11/26 17:57 Order name: Glucose, Ancillary Testing; Complete Time: 18:39 EDMS 11/26 17:53 Order name: CT Soft Tissue Neck W/contr; Complete Time: 20:18 rn 11/26 17:53 Order name: IV Start; Complete Time: 18:13 rn 11/26 18:37 Order name: Labs - recollect needed: recollected chemistries/ hemolyzed per Mina ham Complete Time: 18:54 Administered Medications: 18:24 Drug: Decadron - Dexamethasone IVP 10 mg IVP once Route: IVP; Site: right forearm; hb 18:54 Follow up: Response: No adverse reaction hb 18:24 Drug: NS 0.9% IV 1000 ml IV at 1000 ml once; to be given as a bolus over 60 minutes hb Route: IV; Rate: 1000 ml; Site: right forearm; 20:44 Follow up: Response: No adverse reaction; IV Status: Completed infusion bm8 18:24 Drug: diphenhydrAMINE IVP 25 mg IVP once Route: IVP; Site: right forearm; hb 18:54 Follow up: Response: No adverse reaction hb 18:24 Drug: morphine IVP or IV 4 mg IVP once over 4 mins Route: IVP; Infused Over: 4 mins; hb Site: right forearm; 18:54 Follow up: Response: No adverse reaction hb 18:25 Drug: Racepinephrine Inhalation 0.5 ml Inhalation once Route: Inhalation; hb 18:54 Follow up: Response: No adverse reaction hb 18:54 Drug: Viscous Lidocaine Mucous Membrane Liquid (4 %) 5 ml Mucous Membrane once Route: hb Mucous Membrane; 20:44 Follow up: Response: No adverse reaction bm8 Point of Care Testing: Blood Glucose: 17:43 Blood Glucose: 128 mg/dL; aa5 Ranges: Critical Glucose Levels:Adult <50 mg/dl or >400 mg/dl <40 mg/dl or >180 mg/dl Disposition Summary: 11/26/24 20:23 Discharge Ordered Notes: Location: Home rt Problem: new rt Symptoms: have improved rt Condition: Stable rt Diagnosis - Inhalational injury rt Followup: rt - With: Private Physician - When: 2 - 3 days - Reason: Discharge Instructions: - Discharge Summary Sheet rt - Chemical Inhalation Injury, Adult rt Forms: - Medication Reconciliation Form rt - Antibiotic Education rt - Prescription Opioid Use rt - Patient Portal Instructions rt - Leadership Thank You Letter rt Prescriptions: - Prednisone 20 mg Oral Tablet - take 2 tablets ORAL route once daily for 5 days; 10 tablet; Refills: 0, Product rt Selection Permitted Signatures: Dispatcher [employer] Luisito Branham MD MD rn Calderon, Audri, RN RN aa5 Hansa Case RN RN Aminata Cummings Ryan, MD MD rt Joseluis Gold RN bm8
--- NOTE | 2024-11-26 20:24 | ER ---
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 Pt c/o pain to left side of throat and also reports low blood sugar "because I haven't been able to eat". Reports incident occurred today around 1000. 17:53 Coronavirus screen: At this time, the client does not indicate any symptoms associated aa5 with coronavirus-19. Ebola Screen: Patient denies travel to an Ebola-affected area in the 21 days before illness onset. Initial Sepsis Screen: Does the patient meet any 2 criteria? HR > 90 bpm. Does the patient have a suspected source of infection? No. Patient's initial sepsis screen is negative. Risk Assessment: Do you want to hurt yourself or someone else? Patient reports no desire to harm self or others. Onset of symptoms was November 26, 2024. 17:53 Acuity: DAMEON 3 aa5 17:53 Method Of Arrival: Ambulatory aa5 Historical: - Allergies: 17:52 No Known Allergies; aa5 - PMHx: 17:52 Asthma; COPD; diabetes mellitus; GERD; Hypercholesterolemia; aa5 - PSHx: 17:52 B knee scopes; back SX x 5; R shoulder SX; aa5 - Immunization history:: Adult Immunizations unknown. - Infectious Disease History:: Denies. - Social history:: Smoking status: Patient reports the use of cigarette tobacco products. - Family history:: not pertinent. - Hospitalizations: : No recent hospitalization is reported. Screenin:25 [facility] ED Fall Risk Assessment (Adult) History of falling in the last 3 months, hb including since admission No falls in past 3 months (0 pts) Confusion or Disorientation No (0 pts) Intoxicated or Sedated No (0 pts) Impaired Gait No (0 pts) Mobility Assist Device Used No (0 pt) Altered Elimination No (0 pt) Score/Fall Risk Level 0 - 2 = Low Risk Oriented to surroundings, Maintained a safe environment, Educated pt \\T\\ family on fall prevention, incl call for assistance when getting out of bed. Abuse screen: Denies threats or abuse. Denies injuries from another. Nutritional screening: No deficits noted. Tuberculosis screening: No symptoms or risk factors identified. Assessment: 18:25 General: Appears in no apparent distress. uncomfortable, Behavior is calm, cooperative. hb Pain: Pain currently is 8 out of 10 on a pain scale. Neuro: Level of Consciousness is awake, alert, obeys commands, Oriented to person, place, time, situation. Cardiovascular: Patient's skin is warm and dry. Respiratory: Reports shortness of breath at rest on exertion Respiratory effort is even, unlabored, Respiratory pattern is regular, symmetrical. GI: No signs and/or symptoms were reported involving the gastrointestinal system. : No signs and/or symptoms were reported regarding the genitourinary system. EENT: No signs and/or symptoms were reported regarding the EENT system. Derm: Skin is pink, warm \\T\\ dry. Musculoskeletal: Reports neck pain. 18:54 Reassessment: Patient appears in no apparent distress at this time. No changes from hb previously documented assessment. Patient and/or family updated on plan of care and expected duration. Pain level reassessed. 20:44 Reassessment: Patient appears in no apparent distress at this time. Patient and/or bm8 family updated on plan of care and expected duration. Pain level reassessed. Patient is alert, oriented x 3, equal unlabored respirations, skin warm/dry/pink. Patient denies pain at this time. Patient states feeling better. Patient states symptoms have improved. Vital Signs: 17:53 BP 134 / 105; Pulse 116; Resp 18 S; Temp 98.7(O); Pulse Ox 96% on R/A; aa5 18:25 BP 119 / 95; Pulse 109; Resp 18; Pulse Ox 99% on Nebulizer Mask; hb 18:54 BP 149 / 103; Pulse 99; Resp 21; Pulse Ox 95% on R/A; hb 20:44 BP 131 / 96; Pulse 98; Resp 18; Temp 98.7; Pulse Ox 96% ; Pain 0/10; bm8 20:44 Pain Scale: Adult bm8 [place] Coma Score: 20:44 Eye Response: spontaneous(4). Motor Response: obeys commands(6). Verbal Response: bm8 oriented(5). Total: 15. ED Course: 17:40 Patient arrived in ED. im 17:43 Arm band placed on Patient placed in an exam room, on a stretcher. aa5 17:46 Luisito Morales MD is Attending Physician. rn 17:59 Triage completed. aa5 18:12 Hansa Case, RN is Primary Nurse. hb 18:13 Initial lab(s) drawn, by me, sent to lab. Inserted saline lock: 20 gauge in right hb forearm, using aseptic technique. Blood collected. Flushed with 10 mL NS. 18:25 Patient has correct armband on for positive identification. Bed in low position. Call hb light in reach. Side rails up X 1. Provided Education on: tests, result times, medications, use of call light . Client placed on continuous cardiac and pulse oximetry monitoring. NIBP monitoring applied. folder seamer automatic on. Pulse ox on. NIBP on. 19:05 Radiology exam delayed due to lab results not completed at this time. (BUN/Creatinine). sm9 19:17 Attending Physician role handed off by Luisito Morales MD rt 19:17 Linwood Mata MD is Attending Physician. rt 19:54 CT Soft Tissue Neck W/contr In Process Unspecified. EDMS 20:44 No provider procedures requiring assistance completed. IV discontinued, intact, bm8 bleeding controlled, No redness/swelling at site. Pressure dressing applied. Administered Medications: 18:24 Drug: Decadron - Dexamethasone IVP 10 mg IVP once Route: IVP; Site: right forearm; hb 18:54 Follow up: Response: No adverse reaction hb 18:24 Drug: NS 0.9% IV 1000 ml IV at 1000 ml once; to be given as a bolus over 60 minutes hb Route: IV; Rate: 1000 ml; Site: right forearm; 20:44 Follow up: Response: No adverse reaction; IV Status: Completed infusion bm8 18:24 Drug: diphenhydrAMINE IVP 25 mg IVP once Route: IVP; Site: right forearm; hb 18:54 Follow up: Response: No adverse reaction hb 18:24 Drug: morphine IVP or IV 4 mg IVP once over 4 mins Route: IVP; Infused Over: 4 mins; hb Site: right forearm; 18:54 Follow up: Response: No adverse reaction hb 18:25 Drug: Racepinephrine Inhalation 0.5 ml Inhalation once Route: Inhalation; hb 18:54 Follow up: Response: No adverse reaction hb 18:54 Drug: Viscous Lidocaine Mucous Membrane Liquid (4 %) 5 ml Mucous Membrane once Route: hb Mucous Membrane; 20:44 Follow up: Response: No adverse reaction bm8 Medication: 18:25 VIS not applicable for this client. Point of Care Testing: Blood Glucose: 17:43 Blood Glucose: 128 mg/dL; aa5 Ranges: Outcome: 20:23 Discharge ordered by . rt 20:44 Discharged to home ambulatory, bm8 20:44 Condition: stable 20:44 Discharge instructions given to patient, family, Instructed on discharge instructions, follow up and referral plans. no drinking with medication, no driving heavy equipment, medication usage, safety practices, Demonstrated understanding of instructions, follow-up care, medications, Prescriptions given X 1, 20:46 Patient left the ED. bm8 Signatures: Dispatcher [employer] EDMS Luisito Morales MD MD rn Calderon, Audri, RN RN aa5 Hansa Case RN RN Linwood Irizarry MD MD rt Mone Greco Priscilla Austin 9 Joseluis Gold, RN RN bm8 Corrections: (The following items were deleted from the chart) 17:59 17:43 Chief complaint: aa5 aa5
[2024-11-28 22:49] VITALS: TEMP 98.7
[2024-11-28 22:55] VITALS: BP 131/96; O2SAT 96
== END 2024-11-26 20:46 | disposition home or self-care (01) ==
LOC: ER 17:36
DX: J68.9 Unspecified respiratory condition due to chemicals, gases, fumes and vapors (principal); Z72.0 Tobacco use
CPT/HCPCS: 96361; 85025; 80048; 36415; 82947; 70491; 96375; 96374; 99285; Q9967; J1200; J1100; J7030